=== PATIENT | female | born 1935 | race Caucasian/White ===

== ENCOUNTER 2020-10-04 18:44 | Inpatient (IN) | payer MEDICARE, BC ==
[2020-10-04] MEDS ORDERED: ONDANSETRON 4 MG/2 ML VIAL IVP STA (19:59)
[2020-10-04] MEDS ORDERED: MORPHINE SULFATE 2 MG/ML SYRINGE IVP STA (19:59)
--- NOTE | 2020-10-04 20:18 | ED ---
Lower Extremity Injury HPI - General Chief Complaint: Extremity Injury, Lower Stated Complaint: Fell 2 wks ago/infected knee Time Seen by Provider: 10/04/20 19:28 Source: patient, family Mode of arrival: wheelchair Limitations: no limitations - History of Present Illness Initial Comments: 85 year-old female patient presents to the emergency department today for evaluation of left knee pain and swelling. She had a fall causing injury to the left knee on 09/21/20. She presented to [facility] had labs, xrays of the hip and knee performed. It was determined there was no bony injury to the knee and she was discharged with Keflex for the UTI which she completed on 09/26. Saw her PCP on 09/28 had US which ruled out DVT due to increased swelling and pain to the left knee and calf. Her doctor started her on Clindamycin for cellulitis and she has been on this medication since 09/30. Over the last 3-4 days patient has developed a focal area of swelling over the superior aspect of the knee, did go to urgent care yesterday and had an unsuccessful drainage attempt for what they diagnosed as an abscess. She was discharged to continue the clindamycin. Today her physician sent her here for further evaluation and treatment. Patient states she has not slept well over the last couple of weeks due to the pain. States she is able to bear weight with her walker but it is very painful. She denies any fever or chills. Reports nausea due to the clindamycin. Denies vomiting, diarrhea, or abdominal discomfort. Has had IM cheryl placed to the left femur for previous injury. - Related Data Home Medications Medication Instructions Recorded Confirmed Acetaminophen [Tylenol Arthritis] 650 mg PO Q8H PRN 10/04/20 10/04/20 Acetaminophen/Diphenhydramine 1 tab PO HS PRN 10/04/20 10/04/20 [Tylenol PM 500-25mg] Ascorbic Acid [Vitamin C] 1,000 mg PO DAILY 10/04/20 10/04/20 Clindamycin HCl 300 mg PO TID 10/04/20 10/04/20 Cyanocobalamin (Vitamin B-12) 1,000 mcg PO DAILY 10/04/20 10/04/20 [Vitamin B-12] Furosemide [Lasix] 20 mg PO DAILY PRN 10/04/20 10/04/20 Noni 500 mg PO DAILY 10/04/20 10/04/20 HYDROcodone/APAP 5-325MG [[place] 1 tab PO DAILY PRN 10/04/20 10/04/20 5-325] Losartan Potassium 100 mg PO HS 10/04/20 10/04/20 Multivitamins, Thera [Multivitamin 1 tab PO DAILY 10/04/20 10/04/20 (formulary)] Pyridoxine HCl (Vitamin B6) 100 mg PO DAILY 10/04/20 10/04/20 [Vitamin B-6] Timolol 0.5% Ophth Soln [Timoptic 1 drop BOTH EYES DAILY 10/04/20 10/04/20 0.5% Ophth Soln] Allergies Allergy/AdvReac Type Severity Reaction Status Date / Time Penicillins Allergy Rash/Hives Verified 10/04/20 22:19 sulfamethoxazole Allergy Unknown Verified 10/04/20 22:19 [From Bactrim] trimethoprim [From Bactrim] Allergy Unknown Verified 10/04/20 22:19 Review of Systems ROS Statement: Those systems with pertinent positive or pertinent negative responses have been documented in the HPI. ROS Other: All systems not noted in ROS Statement are negative. Past Medical History Past Medical History: Hypertension Additional Past Medical History / Comment(s): cellulitis, History of Any Multi-Drug Resistant Organisms: None Reported Past Surgical History: Orthopedic Surgery Past Psychological History: No Psychological Hx Reported Smoking Status: Former smoker Past Alcohol Use History: None Reported Past Drug Use History: None Reported General Exam Limitations: no limitations General appearance: alert, in no apparent distress, other (This is a well- developed, well-nourished elderly female patient in no acute distress. Vital signs upon presentation are temperature 98.2F, pulse 82, respirations 18, blood pressure 177/83, pulse ox 98% on room air.) Respiratory exam: Present: normal lung sounds bilaterally. Absent: respiratory distress, wheezes, rales, rhonchi, stridor Cardiovascular Exam: Present: regular rate, normal rhythm, normal heart sounds. Absent: systolic murmur, diastolic murmur, rubs, gallop, clicks GI/Abdominal exam: Present: soft, normal bowel sounds. Absent: distended, tenderness, guarding, rebound, rigid Extremities exam: Present: normal capillary refill, other (Focal area of swelling to the left superior knee, there is overlying ecchymosis, and erythema. Area is fluctuant. Erythema noted over chaves. 2+ pitting edema to the left foot and ankle. Pedal and PT pulse 2+.). Absent: full ROM (limited to left knee due to increased pain with movement), pedal edema, joint swelling, calf tenderness Neurological exam: Present: alert, oriented X3, CN II-XII intact Psychiatric exam: Present: normal affect, normal mood Skin exam: Present: warm, dry, intact, normal color. Absent: rash Course Vital Signs 10/04/20 19:01 Temperature 98.2 F Pulse Rate 82 Respiratory 18 Rate Blood Pressure 177/83 O2 Sat by Pulse 98 Oximetry Medical Decision Making - Medical Decision Making 85-year-old female patient presented to the emergency department today for evaluation of left knee pain and swelling. There is concern for possible abscess. Physical examination did reveal ecchymosis, soft tissue swelling, focal area of swelling over the superior knee on the left side. Labs reviewed and did reveal normal white blood cell count. Sodium is 122, chloride 86, both are decreased from labs obtained earlier this month. She denies history of issues with hyponatremia. Urinalysis shows no signs of infection. CT of the left knee was obtained and showed evidence for a moderate-sized hematoma. She will be admitted to the hospital for hyponatremia, pain management of the left leg pain. She is agreeable this plan. Case discussed with my attending Dr. Huertas. - Lab Data Result diagrams: 10/04/20 20:02 10/04/20 20:02 Lab Results 10/04/20 10/04/20 10/04/20 Range/Units 20:02 20:02 20:02 WBC 5.6 (3.8-10.6) k/uL RBC 4.33 (3.80-5.40) m/uL Hgb 13.1 (11.4-16.0) gm/dL Hct 39.1 (34.0-46.0) % MCV 90.3 (80.0-100.0) fL MCH 30.2 (25.0-35.0) pg MCHC 33.4 (31.0-37.0) g/dL RDW 14.8 (11.5-15.5) % Plt Count 230 (150-450) k/uL MPV 6.5 Neutrophils % 66 % Lymphocytes % 23 % Monocytes % 7 % Eosinophils % 2 % Basophils % 0 % Neutrophils # 3.7 (1.3-7.7) k/uL Lymphocytes # 1.3 (1.0-4.8) k/uL Monocytes # 0.4 (0-1.0) k/uL Eosinophils # 0.1 (0-0.7) k/uL Basophils # 0.0 (0-0.2) k/uL Sodium 122 L (137-145) mmol/L Potassium 3.8 (3.5-5.1) mmol/L Chloride 86 L (98-107) mmol/L Carbon Dioxide 26 (22-30) mmol/L Anion Gap 10 mmol/L BUN 13 (7-17) mg/dL Creatinine 0.47 L (0.52-1.04) mg/dL Est GFR (CKD-EPI)AfAm >90 (>60 ml/min/1.73 sqM) Est GFR (CKD-EPI)NonAf 89 (>60 ml/min/1.73 sqM) Glucose 94 (74-99) mg/dL Plasma Lactic Acid Guilherme 1.2 (0.7-2.0) mmol/L Calcium 10.3 H (8.4-10.2) mg/dL Total Bilirubin 0.6 (0.2-1.3) mg/dL AST 42 H (14-36) U/L ALT 22 (4-34) U/L Alkaline Phosphatase 109 (38-126) U/L Total Protein 7.4 (6.3-8.2) g/dL Albumin 4.5 (3.5-5.0) g/dL Urine Color Urine Appearance (Clear) Urine pH (5.0-8.0) Ur Specific Dixon (1.001-1.035) Urine Protein (Negative) Urine Glucose (UA) (Negative) Urine Ketones (Negative) Urine Blood (Negative) Urine Nitrite (Negative) Urine Bilirubin (Negative) Urine Urobilinogen (<2.0) mg/dL Ur Leukocyte Esterase (Negative) 10/04/20 Range/Units 22:24 WBC (3.8-10.6) k/uL RBC (3.80-5.40) m/uL Hgb (11.4-16.0) gm/dL Hct (34.0-46.0) % MCV (80.0-100.0) fL MCH (25.0-35.0) pg MCHC (31.0-37.0) g/dL RDW (11.5-15.5) % Plt Count (150-450) k/uL MPV Neutrophils % % Lymphocytes % % Monocytes % % Eosinophils % % Basophils % % Neutrophils # (1.3-7.7) k/uL Lymphocytes # (1.0-4.8) k/uL Monocytes # (0-1.0) k/uL Eosinophils # (0-0.7) k/uL Basophils # (0-0.2) k/uL Sodium (137-145) mmol/L Potassium (3.5-5.1) mmol/L Chloride (98-107) mmol/L Carbon Dioxide (22-30) mmol/L Anion Gap mmol/L BUN (7-17) mg/dL Creatinine (0.52-1.04) mg/dL Est GFR (CKD-EPI)AfAm (>60 ml/min/1.73 sqM) Est GFR (CKD-EPI)NonAf (>60 ml/min/1.73 sqM) Glucose (74-99) mg/dL Plasma Lactic Acid Guilherme (0.7-2.0) mmol/L Calcium (8.4-10.2) mg/dL Total Bilirubin (0.2-1.3) mg/dL AST (14-36) U/L ALT (4-34) U/L Alkaline Phosphatase (38-126) U/L Total Protein (6.3-8.2) g/dL Albumin (3.5-5.0) g/dL Urine Color Colorless Urine Appearance Clear (Clear) Urine pH 7.0 (5.0-8.0) Ur Specific Dixon 1.005 (1.001-1.035) Urine Protein Negative (Negative) Urine Glucose (UA) Negative (Negative) Urine Ketones Negative (Negative) Urine Blood Negative (Negative) Urine Nitrite Negative (Negative) Urine Bilirubin Negative (Negative) Urine Urobilinogen <2.0 (<2.0) mg/dL Ur Leukocyte Esterase Negative (Negative) - Radiology Data Radiology results: report reviewed, image reviewed CT left knee with contrast was obtained. Report was reviewed in its entirety. Impression by Dr. Hopper shows focal small to moderate-sized anterior medial distal femoral subcutaneous hematoma. No acute fracture dislocation the left knee. Disposition Clinical Impression: Hyponatremia, Hematoma of left knee region Disposition: ADMITTED IP TO THIS [facility] Condition: Serious Decision to Admit Reason: Admit from EC Decision Date: 10/04/20 Decision Time: 23:05
[2020-10-04 20:28] LABS: Basophils % (A) 0 %; Eosinophils # (A) 0.1 k/uL (0-0.7); Eosinophils % (A) 2 %; HCT 39.1 % (34.0-46.0); HGB 13.1 gm/dL (11.4-16.0); Lymphocytes # (A) 1.3 k/uL (1.0-4.8); Lymphocytes % (A) 23 %; MCH 30.2 pg (25.0-35.0); MCHC 33.4 g/dL (31.0-37.0); MCV 90.3 fL (80.0-100.0); Mean Platelet Volume 6.5; Monocytes # (A) 0.4 k/uL (0-1.0); Monocytes % (A) 7 %; Neutrophils # (A) 3.7 k/uL (1.3-7.7); Neutrophils % (A) 66 %; Platelet Count 230 k/uL (150-450); RBC 4.33 m/uL (3.80-5.40); RDW 14.8 % (11.5-15.5); WBC 5.6 k/uL (3.8-10.6)
[2020-10-04 20:43] LABS: ALT 22 U/L (4-34); AST 42 U/L (14-36); African American GFR (CKD) >90 (>60 ml/min/1.73 sqM); Albumin 4.5 g/dL (3.5-5.0); Alkaline Phosphatase 109 U/L (38-126); Anion Gap 10 mmol/L; Blood Urea Nitrogen 13 mg/dL (7-17); Calcium 10.3 mg/dL (8.4-10.2); Carbon Dioxide 26 mmol/L (22-30); Chloride 86 mmol/L (98-107); Glucose 94 mg/dL (74-99); Non-African American GFR(CKD) 89 (>60 ml/min/1.73 sqM); Potassium 3.8 mmol/L (3.5-5.1); Sodium 122 mmol/L (137-145); Total Bilirubin 0.6 mg/dL (0.2-1.3); Total Protein 7.4 g/dL (6.3-8.2)
--- NOTE | 2020-10-04 22:00 | CT ---
EXAMINATION TYPE: CT knee LT w con DATE OF EXAM: 10/04/2020 COMPARISON: None. HISTORY: pain from fall in left knee CT DLP: 168.3 mGycm Automated exposure control for dose reduction was used. CONTRAST: Performed with IV Contrast, patient injected with 100 mL of Isovue 300. FINDINGS: There is partial visualization of radiolucent portion of femoral prosthesis in the distal femur. Ther e is no acute fracture or dislocation in the left knee. [id number] medial tibiofemoral compartm ent joint space loss. Moderate patellofemoral compartment joint space loss. No significant spurring. Lateral subluxation or tilting of the patella is identified. There is severe superficial prepatellar and infrapatellar subcutaneous edema. There is focal subcutaneous curvilinear hyperintense fluid rick ection or moderate size hematoma measuring roughly 6.3 x 1.9 x 4.2 cm distal femoral anterior medial level. Vascular structures intact without suspicious enhancement. Mild diffuse subcutaneous edema oth erwise is seen. Posterior cruciate ligament is intact. No significant suprapatellar joint effusion. IMPRESSION: Focal small to moderate size anterior medial distal femoral subcutaneous hematoma. No acu te fracture or dislocation in the left knee.
[2020-10-04 22:27] LABS: Appearance,Urine Clear (Clear); Bilirubin,Urine Negative (Negative); Blood,Urine Negative (Negative); Color,Urine Colorless; Glucose,Urine (UA) Negative (Negative); Ketones,Urine Negative (Negative); Leukocyte Esterase,Urine Negative (Negative); Nitrite,Urine Negative (Negative); Protein,Urine Negative (Negative); Specific Gravity,Urine 1.005 (1.001-1.035); Urobilinogen,Urine <2.0 mg/dL (<2.0)
[2020-10-04] MEDS ORDERED: NALOXONE 0.4 MG/ML 1 ML VIAL IV PRN (23:11)
[2020-10-04] MEDS ORDERED: ONDANSETRON 4 MG/2 ML VIAL IVP PRN (23:11)
[2020-10-05] MEDS: MORPHINE SULFATE 2 MG/ML SYRINGE IVP PRN ×2 (00:10→03:06)
[2020-10-05] MEDS: SODIUM CHLORIDE 0.9% 1,000 ML IV SCH ×2 (03:09→10:43)
[2020-10-05 04:44] LABS: African American GFR (CKD) >90 (>60 ml/min/1.73 sqM); Anion Gap 4 mmol/L; Blood Urea Nitrogen 11 mg/dL (7-17); Calcium 9.8 mg/dL (8.4-10.2); Carbon Dioxide 30 mmol/L (22-30); Chloride 89 mmol/L (98-107); Glucose 91 mg/dL (74-99); Non-African American GFR(CKD) 85 (>60 ml/min/1.73 sqM); Potassium 4.2 mmol/L (3.5-5.1); Sodium 123 mmol/L (137-145)
[2020-10-05] MEDS ORDERED: HYDROmorphone 1 MG/ML 1 ML SYRINGE IVP STA (05:05)
[2020-10-05] MEDS ORDERED: KETOROLAC 15 MG/ML 1 ML VIAL IVP STA (05:05)
--- NOTE | 2020-10-05 05:28 | XR ---
EXAMINATION TYPE: XR tibia fibula LT DATE OF EXAM: 10/05/2020 COMPARISON: NONE HISTORY: Fall. Pain. TECHNIQUE: 2 views FINDINGS: The tibia and fibula appear intact. I see no fracture nor dislocation. The knee joint and a nkle joint appear intact. Joint spaces are fairly normal. IMPRESSION: No fracture seen.
--- NOTE | 2020-10-05 07:45 | US ---
EXAMINATION TYPE: US venous doppler duplex LE LT DATE OF EXAM: 10/05/2020 7:25 AM COMPARISON: NONE CLINICAL HISTORY: dvt. left lower leg redness and swelling post fall. SIDE PERFORMED: Left TECHNIQUE: The lower extremity deep venous system is examined utilizing real time linear array sonog alex with graded compression, doppler sonography and color-flow sonography. VESSELS IMAGED: Common Femoral Vein Deep Femoral Vein Greater Saphenous Vein * Femoral Vein Popliteal Vein Proximal Calf Veins (* superficial vessels) Left Leg: Negative for DVT IMPRESSION: Grayscale, color doppler, spectral doppler imaging performed of the deep veins of the lo wer extremities. There is normal flow, compressibility, vascular waveforms.
[2020-10-05] MEDS ORDERED: ACETAMINOPHEN TAB 325 MG TAB PO PRN (09:22)
[2020-10-05] MEDS: PYRIDOXINE 50 MG TAB PO SCH (10:43)
[2020-10-05] MEDS: HYDROcodone/APAP 5-325MG 1 EACH TAB PO PRN (10:54)
[2020-10-05] MEDS: HEPARIN SODIUM,PORCINE/PF 5,000 UNIT/0.5 ML SYRINGE SQ SCH ×2 (15:14→23:29)
[2020-10-05] MEDS: HYDROmorphone 1 MG/ML 1 ML SYRINGE IVP PRN (15:15)
--- NOTE | 2020-10-05 15:58 | P.HPIM ---
History of Present Illness H&P Date: 10/05/20 Chief Complaint: Left knee swelling Patient is a 85-year-old female with a known history of hypertension and previous history of smoking was transferred from [facility] for evaluation of left knee swelling and lower extremity cellulitis. Patient states that she initially fell on her left knee on 09/21/2020 and was seen at [facility]. X-ray of the right hip and knee were done which showed no bony injury. She was also found have urinary tract infection. Patient was discharged home with antibiotic course with Keflex. She did complete her antibiotics on 09/26/2020. She was seen by primary care physician on 09/28/2020 when she had lower extremity duplex Due to increased swelling and pain in the left knee and calf. Ultrasound duplex scan was negative for DVT. She was again seen at [facility] due to left lower extremity redness and swelling. She was diagnosed with cellulitis of the lower extremity and was started on clindamycin on 09/30/2020. She usually responds well with clindamycin for her frequent lower extremity cellulitis. Over the weekend patient started developing swelling about the left knee joint and increased pain and could not sleep well due to pain. Patient was seen by orthopedic surgery and attempted to aspirate the knee twice but was not successful. Patient was sent to ER where she was found to have left suprapatellar swelling and small joint effusion at [facility]. Patient was transferred to [facility] for orthopedic surgery evaluation. Patient had IM cheryl placed to the left femur for previous injury. CT left knee showed focal small to moderate anterior medial distal femoral subcutaneous hematoma. No acute fracture or dislocation the left knee. Left lower extremity duplex scan is negative for DVT. Review of Systems Constitutional: Patient denies any fever or chills . No generalized weakness or weight loss. Abdomen: Patient denied nausea vomiting and diarrhea and abdominal pain. Cardiovascular: Patient denies any chest pain or short of breath no palpitations. Respiratory: patient denied any cough is from production. No shortness of breath Neurologic: Patient denied any numbness or tingling headache. Musculoskeletal: Patient denies any complaints of joint swelling or deformity. Left knee pain Skin: Negative Psychiatric: Negative Endocrine: No heat or cold intolerance. No recent weight gain. Genitourinary: No dysuria or hematuria. All other 14 point ROS negative except the above Past Medical History Past Medical History: Hypertension Additional Past Medical History / Comment(s): cellulitis, History of Any Multi-Drug Resistant Organisms: None Reported Past Surgical History: Orthopedic Surgery Past Psychological History: No Psychological Hx Reported Smoking Status: Former smoker Past Alcohol Use History: None Reported Past Drug Use History: None Reported - Past Family History Father Family Medical History: Osteoarthritis (OA) Additional Family Medical History / Comment(s): Heart problems Mother Family Medical History: Osteoarthritis (OA), Renal Disease Medications and Allergies Home Medications Medication Instructions Recorded Confirmed Type Acetaminophen [Tylenol Arthritis] 650 mg PO Q8H PRN 10/04/20 10/04/20 History Acetaminophen/Diphenhydramine 1 tab PO HS PRN 10/04/20 10/04/20 History [Tylenol PM 500-25mg] Ascorbic Acid [Vitamin C] 1,000 mg PO DAILY 10/04/20 10/04/20 History Clindamycin HCl 300 mg PO TID 10/04/20 10/04/20 History Cyanocobalamin (Vitamin B-12) 1,000 mcg PO DAILY 10/04/20 10/04/20 History [Vitamin B-12] Furosemide [Lasix] 20 mg PO DAILY PRN 10/04/20 10/04/20 History Noni 500 mg PO DAILY 10/04/20 10/04/20 History HYDROcodone/APAP 5-325MG [[place] 1 tab PO DAILY PRN 10/04/20 10/04/20 History 5-325] Losartan Potassium 100 mg PO HS 10/04/20 10/04/20 History Multivitamins, Thera [Multivitamin 1 tab PO DAILY 10/04/20 10/04/20 History (formulary)] Pyridoxine HCl (Vitamin B6) 100 mg PO DAILY 10/04/20 10/04/20 History [Vitamin B-6] Timolol 0.5% Ophth Soln [Timoptic 1 drop BOTH EYES DAILY 10/04/20 10/04/20 History 0.5% Ophth Soln] Allergies Allergy/AdvReac Type Severity Reaction Status Date / Time Penicillins Allergy Rash/Hives Verified 10/04/20 22:19 sulfamethoxazole Allergy Unknown Verified 10/04/20 22:19 [From Bactrim] trimethoprim [From Bactrim] Allergy Unknown Verified 10/04/20 22:19 Physical Exam Vitals: Vital Signs Temp Pulse Pulse Resp BP BP Pulse Ox 10/05/20 08:00 97.5 F L 61 17 147/55 98 10/05/20 06:00 98.6 F 81 18 152/66 97 10/05/20 04:00 67 18 120/51 97 10/05/20 03:00 97.9 F 69 18 110/55 99 10/04/20 19:01 98.2 F 82 18 177/83 98 Intake and Output 10/04/20 10/05/20 10/05/20 22:59 06:59 14:59 Other: Weight 87.997 kg PHYSICAL EXAMINATION: Patient is lying in the bed comfortably, no acute distress, awake alert and or iented.. HEENT: Normocephalic. Neck is supple. Pupils reactive. Nostrils clear. Oral cavity is moist. Neck reveals no JVD, carotid bruits, or thyromegaly. CHEST EXAMINATION: Trachea is central. Symmetrical expansion. Lung lang clear to auscultation and percussion. CARDIAC: Normal S1, S2 with no gallops. No murmurs ABDOMEN: Soft. Bowel sounds normal. No organomegaly. No abdominal bruits. Extremities: Bilateral lower extremity venous stasis changes. Left lower extremity redness and warmth present.. No clubbing or cyanosis Neurologically awake, alert, oriented x3 with well-coordinated movements. No focal deficits noted Skin: No rash or skin lesions. Psychiatric: Coperative. Nonsuicidal Musculoskeletal: Patient does have distal medial femoral swelling. No obvious left knee joint effusion. Decreased range of motion. Results CBC & Chem 7: 10/04/20 20:02 10/05/20 04:10 Labs: Abnormal Lab Results - Last 24 Hours (Table) 10/04/20 10/05/20 Range/Units 20:02 04:10 Sodium 122 L 123 L (137-145) mmol/L Chloride 86 L 89 L (98-107) mmol/L Creatinine 0.47 L (0.52-1.04) mg/dL Calcium 10.3 H (8.4-10.2) mg/dL AST 42 H (14-36) U/L Thrombosis Risk Factor Assmnt - DVT/VTE Prophylaxis DVT/VTE Prophylaxis: Pharmacologic Prophylaxis ordered Assessment and Plan Assessment: Left medial distal femoral hematoma/fluid collection. Left knee injury. Status post fall on 09/21/2020. Bony structures intact as per imaging studies. Left lower extremity cellulitis Hyponatremia likely hypovolemic Hypertension DVT Prophylaxis with heparin subcu Plan: Patient will be continued on IV hydration with normal saline and follow-up sodium level. We'll check serum osmolarity, random urine protein creatinine sodium level. Continue with IV antibiotics. ID and orthopedic surgery was consulted for possible aspiration. PTOT consulted pain management and bowel regimen. Continue to follow closely. Discussed with the patient and her son at bedside in detail and all questions were answered.. Time with Patient: Greater than 30
[2020-10-05] MEDS: LOSARTAN 50 MG TAB PO SCH (20:26)
[2020-10-06] MEDS: SODIUM CHLORIDE 0.9% 1,000 ML IV SCH ×2 (01:17→14:13)
[2020-10-06] MEDS: HYDROmorphone 1 MG/ML 1 ML SYRINGE IVP PRN ×2 (02:01→19:20)
[2020-10-06 06:24] LABS: Basophils % (A) 1 %; Eosinophils # (A) 0.1 k/uL (0-0.7); Eosinophils % (A) 2 %; HCT 32.3 % (34.0-46.0); HGB 11.2 gm/dL (11.4-16.0); Lymphocytes # (A) 1.1 k/uL (1.0-4.8); Lymphocytes % (A) 28 %; MCHC 34.7 g/dL (31.0-37.0); MCV 92.3 fL (80.0-100.0); Mean Platelet Volume 6.7; Monocytes # (A) 0.4 k/uL (0-1.0); Monocytes % (A) 9 %; Neutrophils # (A) 2.4 k/uL (1.3-7.7); Neutrophils % (A) 58 %; Platelet Count 200 k/uL (150-450); RDW 14.5 % (11.5-15.5); WBC 4.1 k/uL (3.8-10.6)
--- NOTE | 2020-10-06 07:49 | CONS ---
CONSULTATION DATE OF SERVICE: 10/05/2020 REASON FOR CONSULTATION: Left lower extremity cellulitis. HISTORY OF PRESENT ILLNESS: The patient is an 85-year-old female with past medical history significant for hypertension. The patient did have a fall on 09/21/2020 with injury to the left knee for which the patient was evaluated hospital. X-rays were negative for any bony injury or fracture. The patient noted to have positive UA and was diagnosed with UTI and has been treated with Keflex. The patient is now presenting back to the hospital with concern for increasing swelling and redness of the left lower leg that apparently had been getting worse for the last few days. The patient has been diagnosed with cellulitis and has been started with oral clindamycin. However, apparently the patient did have worsening swelling and redness to the left leg. The patient describes the pain to be more of a throbbing, intensity 5 to 6/10, no radiation. Currently does not have any open wounds to the left leg or any drainage. The patient did have swelling to the left knee and some bruising, but there is no redness. The patient does have pain to the left knee more of a dull aching 2-3/10 and no radiation. The patient did have some chills but denies high-grade fever. With these symptoms, the patient was evaluated by the ER physician. On arrival to the ER, the patient was afebrile. No fever has been recorded. Subsequently the patient did have a normal white count. Kidney function was normal. The patient did have a CT of the knee which did show evidence of distal medial femoral hematoma. Lower extremity Doppler to the left leg was negative for DVT. Patient has been admitted to the hospital. Infectious Disease was consulted for further management of antibiotic therapy. REVIEW OF SYSTEMS: Positive points have been mentioned in HPI. Rest of systems are negative. PAST MEDICAL HISTORY: Hypertension, cellulitis. PAST SURGICAL HISTORY: Orthopedic surgery. SOCIAL HISTORY: Remote history of smoking. No drinking or drug use. FAMILY HISTORY: No pertinent findings noticed. ALLERGIES: BACTRIM AND PENICILLIN, however has tolerated cephalosporins without any problem. MEDICATIONS: Currently include the patient is on Tylenol, [place], vitamin B12, heparin, Dilaudid, Cozaar, Narcan, Zofran, vitamin B6, Timoptic and Rocephin 2 grams daily. PHYSICAL EXAMINATION: VITAL SIGNS: Her blood pressure is 150/71 with a pulse of 79, temperature is 97.8, she is 96% on room air. GENERAL DESCRIPTION: The patient is an elderly female lying in bed in no distress. No tachypnea or accessory muscles of respiration use. HEENT: Examination shows no pallor or scleral icterus. Oral mucous membrane is dry. NECK: Trachea central, no thyromegaly. LUNGS: Unlabored breathing, clear to auscultation anteriorly. No wheeze or crackle. HEART: S1-S2, regular rate and rhythm. ABDOMEN: Soft, no tenderness. No guarding or rigidity. EXTREMITIES: Left knee did have swelling and did have a bruise, no redness, open wound or any drainage. Left leg did have minimal swelling, slightly warm to touch and redness. NEUROLOGICAL: Patient is awake, alert, oriented times three. Mood and affect normal. LABS: Hemoglobin 13.8, white count 5.6, BUN of 13, creatinine 0.47. CT and Doppler report as mentioned above. Urine is negative. Hernandes PCR was negative. DIAGNOSTIC IMPRESSION: 1. Patient with left lower extremity cellulitis with diffuse swelling and redness likely streptococcal disease. Clinically doubt MRSA or any gram-negative infection. 2. Patient with trauma to the left knee with a hematoma. Clinically not behaving as septic arthritis. 3. Patient who does have multiple antibiotic allergies that will limit the number of antibiotics safe to use. PLAN: 1. Discontinue Rocephin. 2. Start cefazolin 2 grams q.8 hours. 3. Monitor the erythema on left leg. 4. We will follow on clinical condition and further adjust medication if needed. Thank you for this consultation. Will follow this patient along with you. MMODL / IJN: [id number] /
[2020-10-06] MEDS: TIMOLOL 0.5% OPHTH DROPS 5 ML BTL BOTH EYES SCH (08:27)
[2020-10-06] MEDS: HEPARIN SODIUM,PORCINE/PF 5,000 UNIT/0.5 ML SYRINGE SQ SCH ×3 (08:27→23:34)
[2020-10-06] MEDS: PYRIDOXINE 50 MG TAB PO SCH (08:27)
[2020-10-06] MEDS: CYANOCOBALAMIN 500 MCG TAB PO SCH (08:27)
--- NOTE | 2020-10-06 09:06 | P.CNOR ---
History of Present Illness - HPI Consult date: 10/06/20 Consult reason: other (Left knee swelling, hematoma) History of present illness: The patient is a very pleasant 85-year-old female who lives on her own. She is normally a ambulator Clarisse independently around the house uses a walker and raised toilet seat at the house and when out of the house. She is here in [facility] in review to her left knee swelling. She had sustained a fall about 2 weeks ago and did not have any evidence of bony injury. She has small abrasion and developed some swelling around her knee. She was treated with her primary care physician appropriately however she continue to have issues with swelling and some redness. She started being treated for cellulitis but was having minimal benefit and presented to the hospital. She had evaluation for possible DVT which was negative. She underwent further testing which showed hematoma subcutaneously just above her patella. She does not have any obvious instability. She is not having any significant effusion at her knee joint. She says that her knee is feeling better and she feels better when she tries to move and stand up and walk. She does feel very tight at her knee when she tries to bend. She denies any chest pain or shortness of breath. She denies any significant prior injuries with her knee. She denies any fevers or chills. She had been seen at [facility] and they did try to do aspiration of the hematoma but they were not able to get any significant fluid from it. Review of Systems As stated per HPI. Denies any fevers chills. She is able to move her knee. She is able to weight-bear. She is not having pain in her ankle foot and toes. Past Medical History Past Medical History: Hypertension Additional Past Medical History / Comment(s): cellulitis, History of Any Multi-Drug Resistant Organisms: None Reported Past Surgical History: Orthopedic Surgery Additional Past Surgical History / Comment(s): L total hip/hardware loosened and had IM cheryl placed, bilateral feet bunionectomies, EGD, colonoscopies, bilateral cataract removals Past Anesthesia/Blood Transfusion Reactions: No Reported Reaction Past Psychological History: No Psychological Hx Reported Smoking Status: Former smoker Past Alcohol Use History: None Reported Past Drug Use History: None Reported - Past Family History Father Family Medical History: Osteoarthritis (OA) Additional Family Medical History / Comment(s): Heart problems Mother Family Medical History: Osteoarthritis (OA), Renal Disease Medications and Allergies Home Medications Medication Instructions Recorded Confirmed Type Acetaminophen [Tylenol Arthritis] 650 mg PO Q8H PRN 10/04/20 10/04/20 History Acetaminophen/Diphenhydramine 1 tab PO HS PRN 10/04/20 10/04/20 History [Tylenol PM 500-25mg] Ascorbic Acid [Vitamin C] 1,000 mg PO DAILY 10/04/20 10/04/20 History Clindamycin HCl 300 mg PO TID 10/04/20 10/04/20 History Cyanocobalamin (Vitamin B-12) 1,000 mcg PO DAILY 10/04/20 10/04/20 History [Vitamin B-12] Furosemide [Lasix] 20 mg PO DAILY PRN 10/04/20 10/04/20 History Noni 500 mg PO DAILY 10/04/20 10/04/20 History HYDROcodone/APAP 5-325MG [[place] 1 tab PO DAILY PRN 10/04/20 10/04/20 History 5-325] Losartan Potassium 100 mg PO HS 10/04/20 10/04/20 History Multivitamins, Thera [Multivitamin 1 tab PO DAILY 10/04/20 10/04/20 History (formulary)] Pyridoxine HCl (Vitamin B6) 100 mg PO DAILY 10/04/20 10/04/20 History [Vitamin B-6] Timolol 0.5% Ophth Soln [Timoptic 1 drop BOTH EYES DAILY 10/04/20 10/04/20 History 0.5% Ophth Soln] Allergies Allergy/AdvReac Type Severity Reaction Status Date / Time Penicillins Allergy Rash/Hives Verified 10/04/20 22:19 sulfamethoxazole Allergy Unknown Verified 10/04/20 22:19 [From Bactrim] trimethoprim [From Bactrim] Allergy Unknown Verified 10/04/20 22:19 Physical Examination Osteopathic Statement: *. No significant issues noted on an osteopathic structural exam other than those noted in the History and Physical/Consult. - Knee left Appearance: other (Is a small abrasion over her tibial tubercle screws be healing appropriately without erythema. There is swelling at the subcutaneous area the medial super tip patellar area of her left knee. It is approximately 10 cm wide by 6 cm longitudinally and 2-1/2 cm deep. There is an outlined area and any) Gait: limping (She has a subcutaneous collection approximately 10 x 6 x 2 cm at the medial suprapatellar area subcutaneously at the left knee. There is no evidence of purulence. The skin is intact.) right Appearance: effusion (At the knee joint there does not appear to be significant effusion itself. She still has dimpling under patella. Her knee appears stable with varus valgus stress. She has some limited flexion due to tightness anteriorly.) Results - Labs Labs: Abnormal Lab Results - Last 24 Hours (Table) 10/05/20 10/06/20 Range/Units 16:26 05:41 RBC 3.50 L (3.80-5.40) m/uL Hgb 11.2 L (11.4-16.0) gm/dL Hct 32.3 L (34.0-46.0) % Osmolality 267 L (280-301) mosm/kg H & H 10/04/20 10/06/20 Range/Units 20:02 05:41 Hgb 13.1 11.2 L (11.4-16.0) gm/dL Hct 39.1 32.3 L (34.0-46.0) % Result Diagrams: 10/06/20 05:41 10/05/20 04:10 - Diagnostic results Knee x-ray: report reviewed, image reviewed (Imaging of the knee shows no evid ence of obvious fracture. There is some evidence on computed tomography scan of subcutaneous hematoma which correlates with the physical exam) Assessment and Plan Assessment: Left knee traumatic hematoma was subcutaneous hematoma collection measuring approximately 10 x 6 x 2 cm Left knee pain Left knee cellulitis which is improving Small abrasion at the anterior tibial tubercle on the left knee without evidence of infection No evidence of fracture or instability Plan: Left knee traumatic hematoma was subcutaneous hematoma collection measuring approximately 10 x 6 x 2 cm Left knee pain Left knee cellulitis which is improving Small abrasion at the anterior tibial tubercle on the left knee without evidence of infection No evidence of fracture or instability The patient has a hematoma at the subcu space of her left knee over her distal quadriceps. The cellulitis around her knee is being treated with antibiotics and appears to be improving. The hematoma has potential to resolve on its own over time. They tried to do an aspiration of it in [facility] which yielded minimal fluid. It is likely that the collection has somewhat solidified. It can continue to improve with time and expectant management. I did discuss the possibility of surgical evacuation of hematoma with the patient. It seems to be shrinking to some degree and she is comfortable with her mobility and her ambulation so I think that it is okay to continue to treat her expectantly area there is surgical option for evacuation of the hematoma but the patient would like to hold off on this for now and I think that is appropriate. It is very un likely that any further aspiration of the area would yield any significant fluid. The cellulitis appears to be improving. There is no obvious instability or joint effusion. This does not appear to be septic knee. From an orthopedic standpoint is okay for patient to be discharged home. It is okay for her to weight-bear as tolerated. We'll have physical therapy work with her to make sure she is staying with her mobilization and ambulation. I can see her back in the office in the next 4-7 days for recheck evaluation. I discussed this with her and answered questions she is agreeable.
[2020-10-06] MEDS: HYDROcodone/APAP 5-325MG 1 EACH TAB PO PRN (10:46)
[2020-10-06 11:44] LABS: African American GFR (CKD) 100.9 (60.0-200.0); Anion Gap 7.8 mmol/L (4.00-12.00); Calcium 9.1 mg/dL (8.7-10.3); Carbon Dioxide 26.2 mmol/L (21.6-31.8); Potassium 4.2 mmol/L (3.5-5.5)
--- NOTE | 2020-10-06 13:36 | P.PN ---
Subjective Progress Note Date: 10/06/20 Patient is a 85-year-old female with a known history of hypertension and previous history of smoking was transferred from [facility] for evaluation of left knee swelling and lower extremity cellulitis. Patient states that she initially fell on her left knee on 09/21/2020 and was seen at [facility]. X-ray of the right hip and knee were done which showed no bony injury. She was also found have urinary tract infection. Patient was discharged home with antibiotic course with Keflex. She did complete her antibiotics on 09/26/2020. She was seen by primary care physician on 09/28/2020 when she had lower extremity duplex Due to increased swelling and pain in the left knee and calf. Ultrasound duplex scan was negative for DVT. She was again seen at [facility] due to left lower extremity redness and swelling. She was diagnosed with cellulitis of the lower extremity and was started on clindamycin on 09/30/2020. She usually responds well with clindamycin for her frequent lower extremity cellulitis. Over the weekend patient started developing swelling about the left knee joint and increased pain and could not sleep well due to pain. Patient was seen by or thopedic surgery and attempted to aspirate the knee twice but was not successful. Patient was sent to ER where she was found to have left suprapatellar swelling and small joint effusion at [facility]. Patient was transferred to [facility] for orthopedic surgery evaluation. Patient had IM cheryl placed to the left femur for previous injury. CT left knee showed focal small to moderate anterior medial distal femoral subcutaneous hematoma. No acute fracture or dislocation the left knee. Left lower extremity duplex scan is negative for DVT. 10/06/2020 Patient is seen and evaluated in follow-up this morning with no acute overnight issues. She continues to have some left knee discomfort and left lower extremity redness although appears improved from yesterday. Patient is maintained on IV antibiotics in the form of cefazolin and infectious disease is following. Patient continues to have a hematoma noted on the inner aspect of the left knee. PT/OT to evaluate and follow the patient. Patient was also evaluated by Dr. Abbtot and not recommending aspiration and continue with conservative management and physical therapy. Patient is maintained on IV normal saline as her sodium was low yesterday and improved and is 130 today and will continue gentle IV hydration and repeat labs and monitor closely. Blood count is 4.1 and hemoglobin is stable at 11.2. Potassium is 4.2 and current creatinine is 0.5. Review of systems: Constitutional: No reports of fatigue, fever, or chills Cardiovascular: No reports of chest pain or palpitations Respiratory: No reports of shortness of breath or cough GI: No reports of nausea, vomiting, or diarrhea : No reports of dysuria or retention Neurovascular: No reports of weakness or numbness All medications have been reviewed Objective - Vital Signs Vital signs: Vital Signs Temp 98.1 F 10/06/20 11:37 Pulse 70 10/06/20 11:37 Resp 16 10/06/20 11:37 BP 161/71 10/06/20 11:37 Pulse Ox 97 10/06/20 11:37 Intake & Output 10/05/20 10/06/20 10/06/20 18:59 06:59 18:59 Intake Total 700 Balance 700 Weight 87.997 kg Intake: Intake, IV Titration 100 Amount ceFAZolin 2 gm In Sodium 100 Chloride 0.9% 50 ml @ 100 mls/hr IVPB Q8HR ON LICENSE OF [facility] Rx# :[id number] Oral 600 Other: Voiding Method Toilet Toilet # Voids 2 3 1 # Bowel Movements 1 - Exam Patient is sitting up in the bed comfortably, no acute distress, awake alert and oriented.. HEENT: Normocephalic. Neck is supple. Pupils reactive. Nostrils clear. Oral cavity is moist. Neck reveals no JVD, carotid bruits, or thyromegaly. CHEST EXAMINATION: Trachea is central. Symmetrical expansion. Lung lang clear to auscultation and percussion. CARDIAC: Normal S1, S2 with no gallops. No murmurs ABDOMEN: Soft. Bowel sounds normal. No organomegaly. No abdominal bruits. Extremities: Bilateral lower extremity venous stasis changes. Left lower extremity redness and warmth present.. No clubbing or cyanosis, redness appears to have improved no swelling noted. Left knee inner medial aspect hematoma noted with no obvious cellulitis surrounding. Neurologically awake, alert, oriented x3 with well-coordinated movements. No focal deficits noted Skin: No rash or skin lesions. Psychiatric: Cooperative. Non-suicidal Musculoskeletal: Patient does have distal medial femoral swelling. No obvious left knee joint effusion. Decreased range of motion. - Labs CBC & Chem 7: 10/06/20 05:41 10/06/20 05:41 Labs: Abnormal Lab Results - Last 24 Hours (Table) 10/05/20 10/06/20 10/06/20 Range/Units 16:26 05:41 05:41 RBC 3.50 L (3.80-5.40) m/uL Hgb 11.2 L (11.4-16.0) gm/dL Hct 32.3 L (34.0-46.0) % Sodium 130 L (135-145) mmol/L Creatinine 0.5 L (0.6-1.5) mg/dL BUN/Creatinine Ratio 22.00 H (12.00-20.00) Ratio Osmolality 267 L (280-301) mosm/kg Assessment and Plan Assessment: Left medial distal femoral hematoma/fluid collection. Left knee injury. Status post fall on 09/21/2020. Bony structures intact as per imaging studies. Left lower extremity cellulitis Hyponatremia likely hypovolemic, improving sodium is 130 today Hypertension DVT Prophylaxis with heparin subcu Plan: Patient will be continued on IV hydration with normal saline for now as sodium level is improving and currently 130 today. Serum osmolality slightly low at 267 and random urine sodium is 18. Will repeat labs and monitor sodium levels and likely discontinue IV fluids tomorrow. Patient started on IV cefazolin and showing improvements of the left lower extremity cellulitis as the redness has improved. Patient was seen and evaluated by orthopedics recommending conservative management and outpatient follow-up. Patient continues with hematoma and will likely dissipate on its own over time. PT/OT to work with the patient. Infectious disease following. Will continue to monitor closely and await PT/OT therapy notes possible discharge in 24 hours.
[2020-10-06 14:23] LABS: Creatinine,Urine Random 34.1 mg/dL
[2020-10-06 16:28] LABS: Total Protein,Urine Random <5 mg/dL (0.0-13.5)
[2020-10-06] MEDS: LOSARTAN 50 MG TAB PO SCH (20:57)
--- NOTE | 2020-10-06 21:57 | PN ---
PROGRESS NOTE DATE OF SERVICE: 10/06/2020 REASON FOR FOLLOWUP: 1. Left lower extremity cellulitis. 2. Left knee/lower leg hematoma. INTERVAL HISTORY: The patient is afebrile. The patient continued complaining of pain to the left leg and knee area, no worsening though. No chest pain, shortness of breath or cough. No nausea, no vomiting. No abdominal pain, no diarrhea. PHYSICAL EXAMINATION: Blood pressure 161/71 with a pulse of 73, temperature 98.1. She is 97% on room air. General description is an elderly female lying in bed in no distress. Respiratory system: Unlabored breathing, clear to auscultation anteriorly. Heart S1, S2. Regular. Abdomen soft, no tenderness. Left knee did have an area of bruise and swelling. No redness. Left leg redness had improved. LABS: Hemoglobin is 11.8, white count 4.1 BUN of 11, creatinine 0.5. DIAGNOSTIC IMPRESSION AND PLAN: Patient with fall with left knee hematoma. Clinically behaving as septic arthritis ( ) left lower extremity cellulitis covered with cefazolin 2 g q.8h. Continue and monitor clinical course closely. MMODL / IJN: [id number] /
[2020-10-07] MEDS: SODIUM CHLORIDE 0.9% 1,000 ML IV SCH (04:04)
[2020-10-07] MEDS: HYDROmorphone 1 MG/ML 1 ML SYRINGE IVP PRN (04:33)
[2020-10-07] MEDS: CYANOCOBALAMIN 500 MCG TAB PO SCH (08:05)
[2020-10-07] MEDS: PYRIDOXINE 50 MG TAB PO SCH (08:05)
[2020-10-07] MEDS: HEPARIN SODIUM,PORCINE/PF 5,000 UNIT/0.5 ML SYRINGE SQ SCH (08:05)
[2020-10-07] MEDS: TIMOLOL 0.5% OPHTH DROPS 5 ML BTL BOTH EYES SCH (08:05)
[2020-10-07 10:32] LABS: African American GFR (CKD) >90 (>60 ml/min/1.73 sqM); Anion Gap 6 mmol/L; Blood Urea Nitrogen 12 mg/dL (7-17); Calcium 9.7 mg/dL (8.4-10.2); Carbon Dioxide 26 mmol/L (22-30); Chloride 99 mmol/L (98-107); Glucose 109 mg/dL (74-99); Non-African American GFR(CKD) 85 (>60 ml/min/1.73 sqM); Potassium 4.2 mmol/L (3.5-5.1); Sodium 131 mmol/L (137-145)
[2020-10-07 12:20] VITALS: BP 158/76; PULSE 77; RESP 12; TEMP 98.4
--- NOTE | 2020-10-07 13:51 | P.DS ---
Providers Date of admission: 10/04/20 22:51 Expected date of discharge: 10/07/20 Attending physician: Millie Connell Consults: 10/05/20 10:46 Consult Physician Routine Consulting Provider: Taty Royal Consult Reason/Comments: left supra-patella swelling, pain, infection Do you want consulting provider notified?: Yes 10/05/20 13:01 Consult Physician Urgent Consulting Provider: Mindi Abbott Consult Reason/Comments: left knee suprapatellar swelling/ possible drain? Do you want consulting provider notified?: Yes Primary care physician: Bar Chavis MD Hospital Course: Final diagnosis Left medial distal femoral hematoma/fluid collection. Left knee injury. Status post fall on 09/21/2020. Bony structures intact as per imaging studies. Left lower extremity cellulitis Hyponatremia likely hypovolemic, improving Hypertension DVT Prophylaxis Discharge disposition Patient is being discharged in a stable condition with guarded prognosis to [facility] for continued rehab. Patient will follow-up with Dr. Bar Chavis upon discharge. Patient also to follow-up with orthopedics Dr. Abbott in the outpatient setting. Patient will continue on oral antibiotics in the form of Keflex 500 mg every 6 hours for the next 7 days and then may discontinue. Prescription also provided for repeat labs to monitor sodium level. Total time taken is greater than 35 minutes. Hospital course Patient is a 85-year-old female with a known history of hypertension and previous history of smoking was transferred from [facility] for evaluation of left knee swelling and lower extremity cellulitis. Patient states that she initially fell on her left knee on 09/21/2020 and was seen at [facility]. X-ray of the right hip and knee were done which showed no bony injury. She was also found have urinary tract infection. Patient was discharged home with antibiotic course with Keflex. She did complete her antibiotics on 09/26/2020. She was seen by primary care physician on 09/28/2020 when she had lower extremity duplex Due to increased swelling and pain in the left knee and calf. Ultrasound duplex scan was negative for DVT. She was again seen at [facility] due to left lower extremity redness and swelling. She was diagnosed with cellulitis of the lower extremity and was started on clindamycin on 09/30/2020. She usually responds well with clindamycin for her frequent lower extremity cellulitis. Over the weekend patient started developing swelling about the left knee joint and increased pain and could not sleep well due to pain. Patient was seen by orthopedic surgery and attempted to aspirate the knee twice but was not successful. Patient was sent to ER where she was found to have left suprapatellar swelling and small joint effusion at [facility]. Patient was transferred to [facility] for orthopedic surgery evaluation. Patient had IM cheryl placed to the left femur for previous injury. CT left knee showed focal small to moderate anterior medial distal femoral subcutaneous hematoma. No acute fracture or dislocation the left knee. Left lower extremity duplex scan is negative for DVT. 10/06/2020 Patient is seen and evaluated in follow-up this morning with no acute overnight issues. She continues to have some left knee discomfort and left lower extremity redness although appears improved from yesterday. Patient is maintained on IV antibiotics in the form of cefazolin and infectious disease is following. Patient continues to have a hematoma noted on the inner aspect of the left knee. PT/OT to evaluate and follow the patient. Patient was also evaluated by Dr. Abbott and not recommending aspiration and continue with conservative management and physical therapy. Patient is maintained on IV normal saline as her sodium was low yesterday and improved and is 130 today and will continue gentle IV hydration and repeat labs and monitor closely. Blood count is 4.1 and hemoglobin is stable at 11.2. Potassium is 4.2 and current creatinine is 0.5. 10/07/2020 Patient is seen in follow-up this morning sodium improved at 131 and recommend repeat labs to monitor electrolytes closely in the outpatient setting. Patient maintained on IV cefazolin and we'll transition to oral Keflex 500 mg every 6 hours for the next 7 days to complete the course. He should also instructed to follow-up outpatient with orthopedics in 1-2 weeks. Patient continued to be weak recommending subacute rehab as evaluated by PT/OT and will be going to [facility] [place] today. Family at the bedside and agreeable. Currently no reports of chest pain, shortness of breath, or palpitations. Patient is afebrile. No reports of nausea or vomiting and patient is tolerating diet. On exam vital signs are stable. Cardio S1, S2 are muffled. Respiratory shows diminished breath sounds at the bases with no wheezing or rhonchi noted. Abdomen is soft and nontender. Nervous system shows mild diffuse weakness. Please refer to medication reconciliation sheet for a list of medications. Patient Condition at Discharge: Stable Plan - Discharge Summary Discharge Rx Participant: No New Discharge Prescriptions: New Cephalexin [Keflex] 500 mg PO Q6HR 7 Days #28 cap Continue Pyridoxine HCl (Vitamin B6) [Vitamin B-6] 100 mg PO DAILY Acetaminophen [Tylenol Arthritis] 650 mg PO Q8H PRN PRN Reason: Pain Timolol 0.5% Ophth Soln [Timoptic 0.5% Ophth Soln] 1 drop BOTH EYES DAILY Losartan Potassium 100 mg PO HS HYDROcodone/APAP 5-325MG [[place] 5-325] 1 tab PO DAILY PRN #6 tab PRN Reason: Pain Cyanocobalamin (Vitamin B-12) [Vitamin B-12] 1,000 mcg PO DAILY Multivitamins, Thera [Multivitamin (formulary)] 1 tab PO DAILY Ascorbic Acid [Vitamin C] 1,000 mg PO DAILY Acetaminophen/Diphenhydramine [Tylenol PM 500-25mg] 1 tab PO HS PRN PRN Reason: PAIN/SLEEP Noni 500 mg PO DAILY Discontinued Furosemide [Lasix] 20 mg PO DAILY PRN PRN Reason: Edema Clindamycin HCl 300 mg PO TID Discharge Medication List Acetaminophen [Tylenol Arthritis] 650 mg PO Q8H PRN 10/04/20 [History] Acetaminophen/Diphenhydramine [Tylenol PM 500-25mg] 1 tab PO HS PRN 10/04/20 [History] Ascorbic Acid [Vitamin C] 1,000 mg PO DAILY 10/04/20 [History] Cyanocobalamin (Vitamin B-12) [Vitamin B-12] 1,000 mcg PO DAILY 10/04/20 [History] Noni 500 mg PO DAILY 10/04/20 [History] Losartan Potassium 100 mg PO HS 10/04/20 [History] Multivitamins, Thera [Multivitamin (formulary)] 1 tab PO DAILY 10/04/20 [History] Pyridoxine HCl (Vitamin B6) [Vitamin B-6] 100 mg PO DAILY 10/04/20 [History] Timolol 0.5% Ophth Soln [Timoptic 0.5% Ophth Soln] 1 drop BOTH EYES DAILY 06/15/21 [History] Cephalexin [Keflex] 500 mg PO Q6HR 7 Days #28 cap 10/07/20 [Rx] HYDROcodone/APAP 5-325MG [[place] 5-325] 1 tab PO DAILY PRN #6 tab 10/07/20 [Rx] Follow up Appointment(s)/Referral(s): Mindi Abbott DO [Doctor of Osteopathic Medicine] - 1 Week Bar Chavis MD [Primary Care Provider] - 1-2 days Ambulatory/Diagnostic Orders: Basic Metabolic Panel [LAB.AMB] Time Frame: 2 Days, Location: None Selected Activity/Diet/Wound Care/Special Instructions: May ambulate to tolerance. Weight-bear as tolerated bilateral lower extremities. Should do gentle range of motion exercises on her own at her knee ankle and foot Patient is going to [facility]CF Activity as tolerated Continue to elevate left lower extremity while at rest Continue with antibiotics for 7 days and then may discontinue Follow-up orthopedics outpatient follow up with primary care provider upon discharge Continue heart healthy diet Continue to hold Lasix for now Repeat labs of BMP in 2-3 days to monitor sodium level Discharge Disposition: TRANSFER TO SNF/ECF
--- NOTE | 2020-10-07 17:11 | PN ---
PROGRESS NOTE DATE OF SERVICE: 10/07/2020 REASON FOR FOLLOWUP: Left lower extremity cellulitis, left lower leg hematoma. INTERVAL HISTORY: Patient is afebrile. The patient is breathing comfortably. Overall pain and discomfort to the left leg has decreased. The patient denies having any chest pain, shortness of breath or cough. No abdominal pain or diarrhea. PHYSICAL EXAMINATION: Blood pressure 158/76, pulse of 77, temperature 98.4. She is 96% on room air. General description is an elderly female lying in bed in no distress. Respiratory system: Unlabored breathing, clear to auscultation anteriorly. Heart S1, S2. Regular rate and rhythm. Abdomen is soft, no tenderness. Left knee area of swelling and hematoma slightly decreased. No redness was noticed. Left leg redness has decreased. LABS: Creatinine 0.55. No CBC was done today. DIAGNOSTIC IMPRESSION AND PLAN: 1. Patient with acute left lower extremity cellulitis in this patient who has shown overall improvement with cefazolin. She will finish therapy with oral Keflex for a week. Discussed with the nurse practitioner for admitting team. 2. Patient with left knee area hematoma. No evidence of any abscess clinically. To be monitored closely. Family at the bedside. Questions answered. MMODL / IJN: [id number] /
== END 2020-10-07 14:58 | DRG 605 ==
LOC: EC 18:44 → 5NMEDONC 22:51
PROVIDERS: ADMIT Hospitalist; ATTEND Hospitalist
DX: S80.02XA Contusion of left knee, initial encounter (principal); L03.116 Cellulitis of left lower limb; M00.9 Pyogenic arthritis, unspecified; E87.1 Hypo-osmolality and hyponatremia; E86.1 Hypovolemia; I10 Essential (primary) hypertension; Z20.822 Contact with and (suspected) exposure to COVID-19; S80.12XA Contusion of left lower leg, initial encounter; X58.XXXA Exposure to other specified factors, initial encounter; Z87.891 Personal history of nicotine dependence; Z88.1 Allergy status to other antibiotic agents
CPT/HCPCS: 36415; 80048; 80053; 81003; 82570; 83605; 83930; 84156; 84300; 85025; 87635; 96374; 96375; 99285

== ENCOUNTER → 2022-01-12 | Outpatient (CLI) | payer MEDICARE, BC ==
--- NOTE | 2022-01-12 12:11 | US ---
EXAMINATION TYPE: US venous doppler duplex LE DATE OF EXAM: 01/12/2022 12:04 PM COMPARISON: Left leg only 10/05/2020. CLINICAL HISTORY: I82.493 DVT. Leg pain, no known prior DVT SIDE PERFORMED: Bilateral TECHNIQUE: The lower extremity deep venous system is examined utilizing real time linear array sonog alex with graded compression, doppler sonography and color-flow sonography. VESSELS IMAGED: Common Femoral Vein Deep Femoral Vein Greater Saphenous Vein * Femoral Vein Popliteal Vein Small Saphenous Vein * Proximal Calf Veins (* superficial vessels) Grayscale, color doppler, spectral doppler imaging performed of the deep veins of the lower extremiti es. There is normal flow, compressibility, vascular waveforms. Right Leg: Negative for DVT, pt unable to tolerate compression distal femoral vein and pressure of p robe to visualize proximal calf veins Left Leg: Negative for DVT, pt unable to tolerate compression distal femoral vein IMPRESSION: No ultrasound evidence of deep venous thrombosis of the bilateral lower extremities. Patient could no t tolerate compression of the distal femoral veins bilaterally.
== END | disposition home or self-care (01) ==
LOC: RADUSWWP 11:41
PROVIDERS: ATTEND Podiatrist Foot & Ankle Surgery
DX: I82.493 Acute embolism and thrombosis of other specified deep vein of lower extremity, bilateral (principal)
CPT/HCPCS: 93970

== ENCOUNTER → 2022-11-26 | Outpatient (CLI) | payer MEDICARE, BC ==
[2022-11-26 13:33] LABS: INR 0.9 (<1.2); Partial Thromboplastin Time 22.4 sec (22.0-30.0); Prothrombin Time 9.7 sec (9.0-12.0)
[2022-11-26 15:35] LABS: HCT 35.4 % (37.2-46.3); MCH 29.6 pg (27.0-32.0); MCHC 31.1 d/dL (32.0-37.0); MCV 95.2 FL (80.0-97.0); Mean Platelet Volume 9.9 FL (9.5-12.2); NRBC Per 100 WBC 0 X 10*3/uL (0.00-0.01); Platelet Count 263 X 10*3/uL (140-440); RBC 3.72 X 10*6/uL (4.10-5.20); RDW 12.6 % (11.5-14.5); WBC 6.04 X 10*3/uL (4.50-10.00)
[2022-11-26 16:36] LABS: Appearance,Urine Clear (Clear); Bilirubin,Urine Negative (Negative); Blood,Urine Negative (Negative); Color,Urine Yellow (Yellow); Ketones,Urine Negative (Negative); Nitrite,Urine Negative (Negative); Specific Gravity,Urine 1.009 (1.001-1.030); Urobilinogen,Urine 0.2 E.U./DL
[2022-11-26 16:44] LABS: Bacteria,Urine None Seen (None Seen)
[2022-11-26 20:25] LABS: ALT 18 U/L (8-44); AST 23 U/L (13-35); Albumin 4.4 d/dL (3.8-4.9); Albumin/Globulin Ratio 1.76 Ratio (1.60-3.17); Alkaline Phosphatase 109 U/L (41-126); BUN/Creat Ratio 30.17 Ratio (12.00-20.00); Blood Urea Nitrogen 18.1 mg/dL (9.0-27.0); Carbon Dioxide 26.2 mmol/L (21.6-31.8); Chloride 99 mmol/L (96-109); Globulin 2.5 d/dL (1.6-3.3); Glucose 97 mg/dL (70-110); Potassium 5.4 mmol/L (3.5-5.5); Sodium 135 mmol/L (135-145); Total Bilirubin <0.2 mg/dL (0.3-1.2); Total Protein 6.9 d/dL (6.2-8.2)
== END | disposition home or self-care (01) ==
LOC: LABWHC1 11:36
PROVIDERS: ATTEND Orthopaedic Surgery
DX: Z01.812 Encounter for preprocedural laboratory examination (principal); M16.11 Unilateral primary osteoarthritis, right hip; I49.8 Other specified cardiac arrhythmias; R94.31 Abnormal electrocardiogram [ECG] [EKG]
CPT/HCPCS: 36415; 80053; 81001; 85027; 85610; 85730; 87070; 93005

== ENCOUNTER 2022-12-04 05:39 | Inpatient (IN) | payer MEDICARE, BC ==
[~2022-12-04 05:39] MED LIST: ACETAMINOPHEN TAB 500 MG TAB PO PRN; GABAPENTIN 300 MG CAP PO PRN; MELOXICAM 7.5 MG TAB PO PRN; TRANEXAMIC 1,000 MG/100ML-NACL 1,000 MG in SALINE 1 100ML.BAG IVPB PRN
[2022-12-04] MEDS ORDERED: LACTATED RINGERS 1,000 ML IV ONE ×2 (06:20→08:20)
[2022-12-04] MEDS ORDERED: ONDANSETRON 4 MG/2 ML VIAL ONE (06:27)
[2022-12-04] MEDS ORDERED: MIDAZOLAM 2 MG/2 ML VIAL IVP ONE (06:47)
[2022-12-04] MEDS ORDERED: ONDANSETRON 4 MG/2 ML VIAL IVP ONE ×2 (06:53→07:13)
[2022-12-04] MEDS ORDERED: DEXAMETHASONE SOD PHOSPHATE 4 MG/ML 1 ML VIAL IVP ONE (06:53)
[2022-12-04] MEDS ORDERED: ROPIVACAINE 5 MG/ML 30 ML VIAL ONE (06:58)
[2022-12-04] MEDS ORDERED: ePHEDrine 50 MG/ML 1 ML VIAL ONE (06:58)
[2022-12-04] MEDS ORDERED: TRANEXAMIC 1,000 MG/100ML-NACL PREMIX BAG ONE (06:58)
[2022-12-04] MEDS ORDERED: MIDAZOLAM 2 MG/2 ML VIAL ONE (06:58)
[2022-12-04] MEDS ORDERED: ceFAZolin 1,000 MG in SODIUM CHLORIDE 0.9% 1,000 ML IRRIGATION ONE (07:00)
[2022-12-04] MEDS ORDERED: DEXAMETHASONE SOD PHOSPHATE 4 MG/ML 1 ML VIAL IV ONE (07:13)
[2022-12-04] MEDS ORDERED: MIDAZOLAM 2 MG/2 ML VIAL IV PRN (07:13)
[2022-12-04] MEDS ORDERED: LIDOCAINE 1% (10MG/ML) FOR IV START INTRADERMA PRN (07:13)
[2022-12-04] MEDS ORDERED: ROPIVACAINE 5 MG/ML 30 ML VIAL MISCELLANE ONE ×2 (07:24→08:20)
--- NOTE | 2022-12-04 08:16 | P.OP ---
Date of Procedure: 12/04/22 Preoperative Diagnosis: Severe Osteoarthritis right hip Postoperative Diagnosis: Severe osteoarthritis right hip Procedure(s) Performed: Right total hip arthroplasty with a direct anterior approach Implants: [employer] Polarstem standard size 4 with a collar [employer] R3, multi hole hemispherical acetabular shell, 52 mm [employer] Reflection 6.5 mm cancellus screw, 20 mm, 25 mm [employer] R3, XLPE 20 acetabular liner [employer]hew Oxinium femoral head 36 m, +4 Montage bone graft All components were press-fit. The articulation is Oxinium on polyethylene. Anesthesia: spinal Surgeon: Wallace Dunn [employer] Sales Engineer #1: Diana Carrera Estimated Blood Loss (ml): 300 Condition: stable Disposition: PACU Indications for Procedure: After failure of conservative treatment we discussed the surgical and nonsurgical treatment options at length. Patient wishes to proceed with a total hip arthroplasty with a direct anterior approach. Complications specific to this procedure were discussed at length, including but not limited to infection, leg length discrepancy, dislocation, nerve injury, and fracture. Covid-19 was also discussed at length with the patient, and they are aware of the current policies and procedures. The patient was given the option of delaying surgery, but they elect to proceed knowing these risks. Patient is aware of all these complications and informed consent was obtained Operative Findings: The operative findings are consistent with severe osteoarthritis of the right hip Description of Procedure: The patient was seen and evaluated in the preoperative area and the consent was reviewed. The operative site was marked with a skin marker. The patient verified the procedure and operative site. A ELICIA block was placed by anesthesia in the preoperative area. The patient was then brought to the operating room and given preoperative antibiotics intravenously. 1 g of Tranexamic acid was also given intravenously. A spinal anesthetic was administered by the anesthesia department. The patient was then placed on the [place] table with the bony prominences well-padded. The hip area was then prepped with a ChloraPrep solution and draped in the usual sterile fashion. A universal timeout was then performed, which confirmed the patient's name, surgical site, ALLERGIES, and procedure being performed on the consent. Next the incision site was located at 1 cm distal and 4 cm lateral to the anterior superior iliac spine. The skin and subcutaneous tissues were sharply incised. Incision was carefully dissected down to the fascia overlying the tensor fascia lorna muscle. This fascia was then incised in line with the muscle fibers. Care was taken to stay laterally in order to avoid injuring the lateral femoral cutaneous nerve. Next, using blunt finger dissection, the tensor fascia lorna muscle was dissected off its investing fascia. The muscle was then carefully retracted laterally with a cobra retractor over the lateral neck of the femur. Next, the circumflex vessels were identified and cauterized using the Aquamantis device. The anterior hip capsule was then exposed. The capsule was then opened and an inverted T fashion. The retractors were then placed intracapsularly. The retractors were maintained intracapsular throughout the procedure. The proximal femur was then visualized. Fluoroscopic x-rays were then taken in order to evaluate the preoperative leg lengths. A small amount of traction was placed on the leg. The femoral neck was then osteotomized at the appropriate level above the lesser trochanter. A small wedge of bone was then removed from the remaining femoral head. Next, using a corkscrew the femoral head was removed from the acetabulum. On gross visual inspection, the femoral head had complete loss of articular cartilage and multiple periarticular osteophytes. The femoral head was then measured. Attention was then turned to the acetabulum. The acetabulum was exposed and any remaining labrum was excised. Sequential reaming of the acetabulum was performed using fluoroscopic guidance until there was a good bed of bleeding cancellus bone. When the appropriate size was reached, a trial was then placed. The position and fit of the trial was checked with fluoroscopy. The trial was then removed. Due to the patient's poor bone quality, montage bone graft was used to supplement the acetabular fixation. Then, using fluoroscopic guidance, the final implant was impacted at 20 of anteversion and 40 of abduction, and fully seated in the acetabulum. 2 screws were then placed in the acetabulum. Again fluoroscopy was used to check position of the screws. Next, the liner was then impacted, with a 20 elevated liner located in the anterior superior quadrant. Component locking was confirmed. Attention was then directed to the femur. With the aid of the [place] table, the femur was externally rotated to approximately 130, extended, and adducted under the opposite leg. A side hook was then placed under the proximal femur, and the side hook elevator was used to elevate the proximal femur while releasing the capsule. Retractors were then placed. A capsular release was performed, as well as a release of the conjoined tendon, which afforded excellent visualization of the proximal femur. Next, a box osteotome was used to lateralize the proximal femur. A forging machine hand was then used to locate the femoral canal. Sequential broaching was then performed with appropriate size which afforded excellent fixation in the proximal femur. A trial was then placed with appropriate head and neck, and the hip was gently reduced with the aid of the [place] table. Fluoroscopy was then used to check position of the components, as well as to evaluate the leg lengths and offset. The leg lengths and offset were measured as closely as possible to ensure stability of the hip. The hip was then gently dislocated and the trials were then removed. Final implants were then impacted and the hip was again reduced. Final fluoroscopic x-rays confirmed that the components were in anatomic position. The leg lengths and offset were measured and were found to coincide with the trial measurements. The hip was also taken through range of motion, and found to be stable. The hip was then copiously irrigated with antibiotic solution with pulsatile lavage. The hip was then irrigated with Irrisept solution. The soft tissues were then injected with a ropivacaine solution. A second dose of 1 g of Tranexamic acid was also given intravenously. The fascia was then closed with 2-0 strata fix suture. The subcutaneous tissue was closed with 3-0 Vicryl. The subcuticular tissue was closed with 3-0 strata fix suture. The skin was then closed with Exofin skin glue. After the glue and dried, and Optifoam silver impregnated dressing was applied. The patient was then transferred to the recovery room in stable condition. The fiscal assistant TORI Cai was required due to the complexity of surgery, and the need for skilled surgical coordinator for positioning, draping, exposure, retraction, and closure of the wound.
[2022-12-04] MEDS ORDERED: MAGNESIUM HYDROXIDE 2,400 MG/30 ML CUP PO PRN (08:41)
[2022-12-04] MEDS ORDERED: HYDROmorphone 0.5 MG/0.5 ML SYRINGE IVP PRN ×2 (08:41)
[2022-12-04] MEDS ORDERED: NALOXONE 0.4 MG/ML 1 ML VIAL IV PRN (08:41)
[2022-12-04] MEDS ORDERED: ONDANSETRON 4 MG/2 ML VIAL IVP PRN (08:41)
[2022-12-04] MEDS ORDERED: traMADol 50 MG TAB PO PRN (08:44)
--- NOTE | 2022-12-04 08:46 | P.ANPRN ---
Procedure Note - Anesthesia - Nerve Block Performed Right Jimmy Time Out Performed: Yes (06:46) Date of Procedure: 12/04/22 Procedure Start Time: Procedure Stop Time: :51 Location of Patient: PreOp Indication: Acute Post-Operative Pain, Requested by Surgeon (Dr Wallace Dunn) Sedation Type: Sedate with meaningful contact maintained Preparation: Sterile Prep Position: Supine Catheter: None Needle Types: Pajunk Needle Gauge: 21 Ultrasound used to visualize needle placement: Yes Ultrasound used to observe medication spread: Yes Injectate: 0.5% Ropivacaine (see comment for volume) (c) Blood Aspirated: No Pain Paresthesia on Injection Noted: No Resistance on Injection: Normal Image Stored and Saved: Yes Events: Uneventful and Well Tolerated
--- NOTE | 2022-12-04 08:48 | XR ---
Intraoperative/procedural fluoroscopic services were provided for right total hip arthroplasty. Total fluoroscopy time is 1 minute with a total of 3 submitted images to PACS. Total DAP 3.[address] ease see the operative note for further details.
--- NOTE | 2022-12-04 09:07 | XR ---
EXAMINATION TYPE: XR Hip Limited RT DATE OF EXAM: 12/04/2022 9:03 AM INDICATION: Patient age:Female; 87 years old; Reason for study: Status post hip surgery, assess surgical alignment; PHH. COMPARISON: Right hip fluoroscopic images of the same date TECHNIQUE: The right hip was examined in frontal projection. FINDINGS: Post surgical changes from total right hip arthroplasty. Hardware appears intact and approp riately aligned. There is associated soft tissue gas and edema. No acute fracture or dislocation. IMPRESSION: Postsurgical changes from right total hip arthroplasty. Hardware appears intact with appropriate alig nment.
[2022-12-04] MEDS: HYDROmorphone 0.5 MG/0.5 ML SYRINGE IVP PRN ×2 (12:03→12:13)
[2022-12-04] MEDS: LACTATED RINGERS 1,000 ML IV SCH (13:01)
[2022-12-04] MEDS: ASPIRIN 325 MG TAB PO SCH ×2 (13:02→22:33)
[2022-12-04] MEDS: SODIUM CHLORIDE 0.9% 1,000 ML IV SCH ×2 (13:02→23:12)
[2022-12-04] MEDS: traMADol 50 MG TAB PO PRN (14:30)
[2022-12-04] MEDS ORDERED: SUMAtriptan succinate 50 MG TAB PO PRN (17:07)
[2022-12-04] MEDS: SENNOSIDES-DOCUSATE SODIUM 1 EACH TAB PO SCH (22:33)
[2022-12-04] MEDS: LOSARTAN 50 MG TAB PO SCH (22:33)
--- NOTE | 2022-12-05 02:28 | P.CONS ---
History of Present Illness - Reason for Consult Consult date: 12/04/22 Medical management - Chief Complaint Right total hip arthroplasty - History of Present Illness Patient is a 87-year-old female with a known history of hypertension, osteoarthritis and history of left total hip arthroplasty and prior history of smoking was admitted to the hospital for elective right total hip arthroplasty. Patient is status post right hip arthroplasty with direct anterior approach. Postoperative day 0. Pain is controlled at this time. Patient underwent nerve block. Otherwise denies any complaints of chest pain or shortness of breath. No nausea vomiting abdominal pain. No headache or dizziness or lightheadedness. Postoperatively blood pressure is elevated with SBP in 150s. Status post right total hip arthroplasty postoperative day 0 Benign essential hypertension. Fairly controlled. Prior history of smoking Osteoarthritis Prior history of left total hip arthroplasty/ History of migraine headaches GI and DVT prophylaxis Plan: Patient will be continued on pain management, bowel regimen and encourage incentive spirometry. Patient underwent nerve block. Current with home blood pressure medications including Norvasc and losartan and Lasix. Patient is currently on aspirin 325 mg p.o. twice daily. Follow-up CBC and BMP tomorrow. Further recommendations based on the clinical course. Thank you for your consult. Past Medical History Past Medical History: Hypertension Additional Past Medical History / Comment(s): LEG SWELLING. LEG SWELLING History of Any Multi-Drug Resistant Organisms: None Reported Past Surgical History: Hysterectomy, Orthopedic Surgery Additional Past Surgical History / Comment(s): L total hip/hardware loosened and had IM cheryl placed. Bilateral feet bunionectomies,. EGD, colonoscopies, bilateral cataract removals Past Anesthesia/Blood Transfusion Reactions: No Reported Reaction Past Psychological History: No Psychological Hx Reported Additional Psychological History / Comment(s): Pt resides alone. She uses a ro llator walker. Pt normally drives but lately d/t knee injury, her son has been driving her. Smoking Status: Former smoker Past Alcohol Use History: None Reported Past Drug Use History: None Reported - Past Family History Father Family Medical History: Osteoarthritis (OA) Additional Family Medical History / Comment(s): Heart problems Mother Family Medical History: Osteoarthritis (OA), Renal Disease Medications and Allergies Home Medications Medication Instructions Recorded Confirmed Type Losartan Potassium 100 mg PO HS 10/04/20 11/27/22 History Timolol 0.5% Ophth Soln [Timoptic 1 drop BOTH EYES QAM 10/04/20 11/27/22 History 0.5% Ophth Soln] Furosemide [Lasix] 20 mg PO QAM PRN 06/22/22 11/27/22 History Acetaminophen/Diphenhydramine 1 tab PO HS 11/27/22 11/27/22 History [Tylenol PM 500-25mg] Aspirin [Adult Low Dose Aspirin EC] 81 mg PO DAILY 11/27/22 11/27/22 History SUMAtriptan succinate [Imitrex] 50 mg PO DAILY PRN 11/27/22 11/27/22 History amLODIPine [Norvasc] 5 mg PO QAM 11/27/22 11/27/22 History Aspirin 325 mg PO BID #60 tab 12/04/22 Rx Sennosides [Senokot] 2 tab PO DAILY PRN #60 tablet 12/04/22 Rx traMADol HCl [Ultram] 1 - 2 tab PO Q6H PRN #32 tab 12/04/22 Rx Allergies Allergy/AdvReac Type Severity Reaction Status Date / Time Penicillins Allergy Rash/Hives Verified 12/04/22 06:08 sulfamethoxazole Allergy Unknown Verified 12/04/22 06:08 [From Bactrim] trimethoprim [From Bactrim] Allergy Unknown Verified 12/04/22 06:08 Physical Exam Vitals: Vital Signs Temp Pulse Pulse Resp BP BP Pulse Ox 12/04/22 13:30 97.5 F L 59 L 19 129/80 100 12/04/22 12:30 55 L 16 124/62 97 12/04/22 12:03 61 16 145/73 97 12/04/22 11:46 52 L 16 126/83 97 12/04/22 11:15 52 L 16 121/60 97 12/04/22 10:59 52 L 16 121/64 97 12/04/22 10:31 52 L 16 115/53 97 12/04/22 10:14 53 L 16 121/56 97 12/04/22 10:00 53 L 16 104/53 97 12/04/22 09:45 54 L 16 109/52 97 12/04/22 09:28 55 L 16 105/52 97 12/04/22 09:14 54 L 16 106/56 97 12/04/22 09:00 57 L 14 110/48 97 12/04/22 08:44 57 L 14 102/48 97 12/04/22 08:32 64 14 100/47 97 12/04/22 06:53 65 20 129/63 100 12/04/22 06:00 96.9 F L 65 20 147/69 100 Intake and Output 12/03/22 12/04/22 12/04/22 22:59 06:59 14:59 Intake Total 400 1051 Output Total 450 Balance 400 601 Intake: IV 400 1051 Output: Urine 150 Estimated Blood Loss 300 Other: Weight 90.9 kg Results CBC & Chem 7: 12/04/22 06:40
[2022-12-05] MEDS: traMADol 50 MG TAB PO PRN ×3 (04:24→17:17)
[2022-12-05] MEDS: LACTATED RINGERS 1,000 ML IV SCH (05:20)
[2022-12-05] MEDS: HYDROmorphone 0.5 MG/0.5 ML SYRINGE IVP PRN ×3 (08:00→19:45)
[2022-12-05] MEDS: TIMOLOL 0.5% OPHTH DROPS 5 ML BTL BOTH EYES SCH (08:01)
[2022-12-05] MEDS: ASPIRIN 325 MG TAB PO SCH ×2 (08:01→19:45)
[2022-12-05] MEDS: amLODIPine 5 MG TAB PO SCH (08:01)
--- NOTE | 2022-12-05 09:22 | P.PN ---
Subjective Progress Note Date: 12/05/22 Principal diagnosis: Primary osteoarthritis right hip. Status post total right hip arthroplasty. This is an 87-year-old female who is postop day #1 status post total right hip arthroplasty. She is stable from an orthopedic standpoint. She has no new complaints or concerns today. Vital signs are stable. She has no complaint of nausea, vomiting, shortness of breath or dyspnea. Objective - Vital Signs Vital signs: Vital Signs Temp 97.4 F L 12/05/22 07:19 Pulse 88 12/05/22 07:19 Resp 16 12/05/22 07:19 BP 143/73 12/05/22 07:19 Pulse Ox 92 L 12/05/22 07:19 FiO2 Intake & Output 12/04/22 12/05/22 12/05/22 18:59 06:59 18:59 Intake Total 1381 Output Total 450 550 Balance 931 -550 Weight 90.9 kg Intake: IV 1051 Intake, IV Titration 330 Amount Sodium Chloride 0.9% 1, 280 000 ml @ 70 mls/hr IV . [id number] [facility] Rx#:[id number] ceFAZolin 2 gm In Sodium 50 Chloride 0.9% 50 ml @ 100 mls/hr IVPB Q8H [facility] Rx#: [id number] Output: Urine 150 550 Estimated Blood Loss 300 Other: Voiding Method External Catheter # Voids 2 1 - Exam This is a pleasant 87-year-old female in no acute distress. She is alert and oriented 3. Exam of the right lower extremity reveals that her dressing is clean, dry and intact. There is mild soft tissue swelling. She has full foot and ankle motion without difficulty or pain. Neurovascular status to the lower extremity is intact. - Labs CBC & Chem 7: 12/04/22 06:40 Assessment and Plan (1) Osteoarthritis of right hip Current Visit: Yes Status: Acute Code(s): M16.11 - UNILATERAL PRIMARY OSTEOARTHRITIS, RIGHT HIP SNOMED Code(s): 110472875132791 (2) S/P total right hip arthroplasty Current Visit: Yes Status: Acute Code(s): Z96.641 - PRESENCE OF RIGHT ARTIFICIAL HIP JOINT SNOMED Code(s): 841191883564 Plan: The clinical findings are discussed with the patient. She is anticipating discharge to rehab at discharge. We will begin physical therapy today. [facility].
[2022-12-05 09:24] LABS: BUN/Creat Ratio 24.33 Ratio (12.00-20.00); Blood Urea Nitrogen 14.6 mg/dL (9.0-27.0); Calcium 9.8 mg/dL (8.7-10.3); Carbon Dioxide 25.1 mmol/L (21.6-31.8); Chloride 102 mmol/L (96-109); Glucose 92 mg/dL (70-110); Potassium 4.9 mmol/L (3.5-5.5); Sodium 137 mmol/L (135-145)
[2022-12-05] MEDS: SODIUM CHLORIDE 0.9% 1,000 ML IV SCH (10:19)
[2022-12-05 13:41] LABS: Basophils # (A) 0.03 X 10*3/uL (0.00-0.10); Basophils % (A) 0.4 %; Eosinophils # (A) 0.01 X 10*3/uL (0.04-0.35); Eosinophils % (A) 0.1 %; HCT 28.1 % (37.2-46.3); HGB 8.9 d/dL (12.0-15.0); Lymphocytes # (A) 0.94 X 10*3/uL (0.90-5.00); Lymphocytes % (A) 11.1 %; MCH 29.4 pg (27.0-32.0); MCHC 31.7 d/dL (32.0-37.0); MCV 92.7 FL (80.0-97.0); Monocytes # (A) 0.92 X 10*3/uL (0.20-1.00); Monocytes % (A) 10.8 %; NRBC Per 100 WBC 0 X 10*3/uL (0.00-0.01); Neutrophils # (A) 6.55 X 10*3/uL (1.80-7.70); Neutrophils % (A) 77.2 %; Platelet Count 202 X 10*3/uL (140-440); RBC 3.03 X 10*6/uL (4.10-5.20); RDW 12.7 % (11.5-14.5); WBC 8.48 X 10*3/uL (4.50-10.00)
[2022-12-05] MEDS: SENNOSIDES-DOCUSATE SODIUM 1 EACH TAB PO SCH (19:45)
[2022-12-05] MEDS: LOSARTAN 50 MG TAB PO SCH (19:45)
[2022-12-05] MEDS ORDERED: CYCLOBENZAPRINE 10 MG TAB PO STA (21:14)
[2022-12-06] MEDS: SODIUM CHLORIDE 0.9% 1,000 ML IV SCH (03:57)
[2022-12-06] MEDS: LACTATED RINGERS 1,000 ML IV SCH (03:57)
--- NOTE | 2022-12-06 07:06 | P.PN ---
Subjective Progress Note Date: 12/05/22 - Reason for Consult Consult date: 12/04/22 Medical management - Chief Complaint Right total hip arthroplasty - History of Present Illness Patient is a 87-year-old female with a known history of hypertension, oste oarthritis and history of left total hip arthroplasty and prior history of smoking was admitted to the hospital for elective right total hip arthroplasty. Patient is status post right hip arthroplasty with direct anterior approach. Postoperative day 0. Pain is controlled at this time. Patient underwent nerve block. Otherwise denies any complaints of chest pain or shortness of breath. No nausea vomiting abdominal pain. No headache or dizziness or lightheadedness. Postoperatively blood pressure is elevated with SBP in 150s. 12/05/2022 Patient seen and evaluated in follow-up today that is post right total hip arthroplasty and currently sitting up in the chair. Patient was able to work with physical therapy reported some significant pain and is recommending rehab. Patient is agreeable case management following working on ECF. Patient is afebrile denies chest pain or shortness of breath. Patient reports a tolerating diet with no reports of nausea or vomiting. All medications reviewed and resumed as appropriate. Incentive spirometer at bedside and encourage the patient to continue using at least 10 times every hour while awake. Review of systems: Constitutional: No reports of fatigue, fever, or chills Cardiovascular: No reports of chest pain or palpitations Respiratory: No reports of shortness of breath or cough GI: No reports of nausea, vomiting, or diarrhea : No reports of dysuria or retention Neurovascular: reports of generalized weakness and right hip pain All medications have been reviewed Physical exam: Gen: This is a 87-year-old female who is awake, alert and oriented 3, well- developed, well-nourished, obese HEENT: Head is atraumatic, normocephalic. Pupils equal, round. Sclerae is anicteric. NECK: Supple. No JVD. No lymphadenopathy. No thyromegaly. LUNGS: Diminished breath sounds bilaterally with no wheezes or rhonchi. No intercostal retractions. HEART: Regular rate and rhythm. No murmur. ABDOMEN: Soft. Obese. Bowel sounds are present. No masses. No tenderness. EXTREMITIES: No pedal edema. No calf tenderness. NEUROLOGICAL: Patient is awake, alert and oriented x3. Cranial nerves 2 through 12 are grossly intact. Assessment: Status post right total hip arthroplasty postoperative day 1 Benign essential hypertension. Fairly controlled. Prior history of smoking Osteoarthritis Prior history of left total hip arthroplasty History of migraine headaches GI and DVT prophylaxis Plan: Patient will be continued on pain management, bowel regimen per orthopedics Incentive spirometer at bedside and encourage the patient to continue using at least 10 times every hour while awake Appropriate home medications have been reviewed and resumed Case management following an physical therapy evaluated recommending rehab and patient is agreeable. We will continue to follow with orthopedics during hospitalization. Thank you kindly for this consultation. Patient is medically stable for transfer to [facility] The impression and plan of care has been dictated by Tammy Moreno, Nurse Practitioner as directed. Dr. Pernell MD I have performed a history and examination and MDM of this patient, discussed the same with the dictator, and agree with the dictator's assessment and plan as written ,documented as a scribe. Based on total visit time, I have performed more than 50% of the visit. Objective - Vital Signs Vital signs: Vital Signs Temp 97.4 F L 12/05/22 07:19 Pulse 88 12/05/22 07:19 Resp 16 12/05/22 07:19 BP 143/73 12/05/22 07:19 Pulse Ox 92 L 12/05/22 07:19 FiO2 Intake & Output 12/04/22 12/05/22 12/05/22 18:59 06:59 18:59 Intake Total 1381 Output Total 450 550 Balance 931 -550 Weight 90.9 kg Intake: IV 1051 Intake, IV Titration 330 Amount Sodium Chloride 0.9% 1, 280 000 ml @ 70 mls/hr IV . [id number] [facility] Rx#:[id number] ceFAZolin 2 gm In Sodium 50 Chloride 0.9% 50 ml @ 100 mls/hr IVPB Q8H [facility] Rx#: [id number] Output: Urine 150 550 Estimated Blood Loss 300 Other: Voiding Method External Catheter # Voids 2 1 - Labs CBC & Chem 7: 12/05/22 05:10 12/05/22 05:10 Labs: Abnormal Lab Results - Last 24 Hours (Table) 12/05/22 Range/Units 05:10 BUN/Creatinine Ratio 24.33 H (12.00-20.00) Ratio
[2022-12-06] MEDS ORDERED: ACETAMINOPHEN TAB 325 MG TAB PO PRN (07:07)
[2022-12-06] MEDS: amLODIPine 5 MG TAB PO SCH (08:22)
[2022-12-06] MEDS: traMADol 50 MG TAB PO PRN ×2 (08:22→20:39)
[2022-12-06] MEDS: ASPIRIN 325 MG TAB PO SCH ×2 (08:22→20:36)
[2022-12-06] MEDS: PANTOPRAZOLE 40 MG TABLET PO SCH ×2 (08:22→18:14)
[2022-12-06] MEDS: TIMOLOL 0.5% OPHTH DROPS 5 ML BTL BOTH EYES SCH (08:28)
[2022-12-06] MEDS: HYDROcodone/APAP 5-325MG 1 EACH TAB PO PRN ×2 (11:21→18:14)
--- NOTE | 2022-12-06 15:11 | P.PN ---
Subjective Progress Note Date: 12/06/22 This is an 87-year-old female who is status post right total hip arthroplasty. This is postoperative day #2 and patient is seen and evaluated at bedside today. Patient states that she is doing well and has been able to work with physical therapy. Objective - Vital Signs Vital signs: Vital Signs Temp 96.9 F L 12/06/22 14:00 Pulse 74 12/06/22 14:00 Resp 17 12/06/22 14:00 BP 109/72 12/06/22 14:00 Pulse Ox 98 12/06/22 14:00 FiO2 Intake & Output 12/05/22 12/06/22 12/06/22 18:59 06:59 18:59 Output Total 900 Balance -900 Output: Urine 900 Other: Voiding Method Toilet Toilet Toilet Bedside Commode External Catheter External Catheter External Catheter # Voids 1 - Exam On exam patient is sitting comfortably in a chair in no acute distress. Patient is alert and oriented x3. Dressing is clean, dry and intact. No drainage. No erythema. Calf is soft and nontender to palpation. Sensation intact. Patient has full range of motion of the foot and ankle. Neurovascular status and circulatory status are intact. - Labs CBC & Chem 7: 12/05/22 05:10 12/05/22 05:10 Assessment and Plan (1) Osteoarthritis of right hip Current Visit: Yes Status: Acute Code(s): M16.11 - UNILATERAL PRIMARY OSTEOARTHRITIS, RIGHT HIP SNOMED Code(s): 240035154649436 (2) S/P total right hip arthroplasty Current Visit: Yes Status: Acute Code(s): Z96.641 - PRESENCE OF RIGHT ARTIFICIAL HIP JOINT SNOMED Code(s): 840466625196 Plan: 1. Weightbearing as tolerated with walker. Continue physical therapy. 2. Continue routine postoperative care and pain control. 3. Dressing to stay intact for 7 days. 4. Continue aspirin for DVT prophylaxis. 5. Patient is awaiting ECF placement.
[2022-12-06] MEDS: LOSARTAN 50 MG TAB PO SCH (20:36)
[2022-12-06] MEDS: SENNOSIDES-DOCUSATE SODIUM 1 EACH TAB PO SCH (20:36)
[2022-12-07] MEDS: HYDROcodone/APAP 5-325MG 1 EACH TAB PO PRN ×2 (04:45→12:53)
[2022-12-07] MEDS: PANTOPRAZOLE 40 MG TABLET PO SCH (06:21)
[2022-12-07] MEDS: ASPIRIN 325 MG TAB PO SCH (08:42)
[2022-12-07] MEDS: amLODIPine 5 MG TAB PO SCH (08:42)
[2022-12-07] MEDS: TIMOLOL 0.5% OPHTH DROPS 5 ML BTL BOTH EYES SCH (08:43)
[2022-12-07] MEDS: traMADol 50 MG TAB PO PRN (08:45)
--- NOTE | 2022-12-07 09:37 | P.PN ---
Subjective Progress Note Date: 12/06/22 - Reason for Consult Consult date: 12/04/22 Medical management - Chief Complaint Right total hip arthroplasty - History of Present Illness Patient is a 87-year-old female with a known history of hypertension, oste oarthritis and history of left total hip arthroplasty and prior history of smoking was admitted to the hospital for elective right total hip arthroplasty. Patient is status post right hip arthroplasty with direct anterior approach. Postoperative day 0. Pain is controlled at this time. Patient underwent nerve block. Otherwise denies any complaints of chest pain or shortness of breath. No nausea vomiting abdominal pain. No headache or dizziness or lightheadedness. Postoperatively blood pressure is elevated with SBP in 150s. 12/05/2022 Patient seen and evaluated in follow-up today that is post right total hip arthroplasty and currently sitting up in the chair. Patient was able to work with physical therapy reported some significant pain and is recommending rehab. Patient is agreeable case management following working on [facility]. Patient is afebrile denies chest pain or shortness of breath. Patient reports a tolerating diet with no reports of nausea or vomiting. All medications reviewed and resumed as appropriate. Incentive spirometer at bedside and encourage the patient to continue using at least 10 times every hour while awake. 12/06/2022 Patient is seen in follow-up this morning currently sitting in the chair continues to report some right hip discomfort although reports is more manageable today. Patient states she was able to work with his therapy and will be going to rehab. Patient reports she will be going to [facility] on discharge. Patient is afebrile denies chest pain or shortness of breath. Patient reports a tolerating diet and is passing gas. Patient is urinating with no difficulties. Patient does have incentive spirometer at the bedside and encourage the patient to continue using even while at rehab. Patient is medically stable for discharge to [facility]. Review of systems: Constitutional: No reports of fatigue, fever, or chills Cardiovascular: No reports of chest pain or palpitations Respiratory: No reports of shortness of breath or cough GI: No reports of nausea, vomiting, or diarrhea : No reports of dysuria or retention Neurovascular: reports of generalized weakness and right hip pain All medications have been reviewed Physical exam: Gen: This is a 87-year-old female who is awake, alert and oriented 3, well- developed, well-nourished, obese HEENT: Head is atraumatic, normocephalic. Pupils equal, round. Sclerae is anicteric. NECK: Supple. No JVD. No lymphadenopathy. No thyromegaly. LUNGS: Diminished breath sounds bilaterally with no wheezes or rhonchi. No intercostal retractions. HEART: Regular rate and rhythm. No murmur. ABDOMEN: Soft. Obese. Bowel sounds are present. No masses. No tenderness. EXTREMITIES: No pedal edema. No calf tenderness. NEUROLOGICAL: Patient is awake, alert and oriented x3. Cranial nerves 2 through 12 are grossly intact. Assessment: Status post right total hip arthroplasty Benign essential hypertension. Fairly controlled. Prior history of smoking Osteoarthritis Prior history of left total hip arthroplasty History of migraine headaches GI and DVT prophylaxis Plan: Patient will be continued on pain management, bowel regimen per orthopedics Incentive spirometer at bedside and encourage the patient to continue using at least 10 times every hour while awake Appropriate home medications have been reviewed and resumed Case management following an physical therapy evaluated recommending rehab and patient is agreeable. Patient reports she is going to [facility] We will continue to follow with orthopedics during hospitalization. Thank you kindly for this consultation. Patient is medically stable for transfer to [facility] The impression and plan of care has been dictated by Tammy Moreno, Nurse Practitioner as directed. Dr. Pernell MD I have performed a history and examination and MDM of this patient, discussed the same with the dictator, and agree with the dictator's assessment and plan as written ,documented as a scribe. Based on total visit time, I have performed more than 50% of the visit. Objective - Vital Signs Vital signs: Vital Signs Temp 97.3 F L 12/06/22 07:12 Pulse 95 12/06/22 07:12 Resp 16 12/06/22 07:12 BP 134/77 12/06/22 07:12 Pulse Ox 92 L 12/06/22 07:12 FiO2 Intake & Output 12/05/22 12/06/22 12/06/22 18:59 06:59 18:59 Output Total 900 Balance -900 Output: Urine 900 Other: Voiding Method Toilet Toilet Bedside Commode External Catheter External Catheter # Voids 1 - Labs CBC & Chem 7: 12/05/22 05:10 12/05/22 05:10 Labs: Abnormal Lab Results - Last 24 Hours (Table) 12/05/22 Range/Units 05:10 RBC 3.03 L (4.10-5.20) X 10*6/uL Hgb 8.9 L (12.0-15.0) d/dL Hct 28.1 L (37.2-46.3) % MCHC 31.7 L (32.0-37.0) d/dL Eosinophils # 0.01 L (0.04-0.35) X 10*3/uL
--- NOTE | 2022-12-07 09:46 | P.PN ---
Subjective Progress Note Date: 12/07/22 - Reason for Consult Consult date: 12/04/22 Medical management - Chief Complaint Right total hip arthroplasty - History of Present Illness Patient is a 87-year-old female with a known history of hypertension, oste oarthritis and history of left total hip arthroplasty and prior history of smoking was admitted to the hospital for elective right total hip arthroplasty. Patient is status post right hip arthroplasty with direct anterior approach. Postoperative day 0. Pain is controlled at this time. Patient underwent nerve block. Otherwise denies any complaints of chest pain or shortness of breath. No nausea vomiting abdominal pain. No headache or dizziness or lightheadedness. Postoperatively blood pressure is elevated with SBP in 150s. 12/05/2022 Patient seen and evaluated in follow-up today that is post right total hip arthroplasty and currently sitting up in the chair. Patient was able to work with physical therapy reported some significant pain and is recommending rehab. Patient is agreeable case management following working on [facility]. Patient is afebrile denies chest pain or shortness of breath. Patient reports a tolerating diet with no reports of nausea or vomiting. All medications reviewed and resumed as appropriate. Incentive spirometer at bedside and encourage the patient to continue using at least 10 times every hour while awake. 12/06/2022 Patient is seen in follow-up this morning currently sitting in the chair continues to report some right hip discomfort although reports is more manageable today. Patient states she was able to work with his therapy and will be going to rehab. Patient reports she will be going to [facility] on discharge. Patient is afebrile denies chest pain or shortness of breath. Patient reports a tolerating diet and is passing gas. Patient is urinating with no difficulties. Patient does have incentive spirometer at the bedside and encourage the patient to continue using even while at rehab. Patient is medically stable for discharge to [facility]. 12/07/2022 Patient is seen this morning and is scheduled to go to [facility] for continued st rength and mobility. Patient is status post right hip arthroplasty and has been working with physical therapy. Patient with significant weakness would benefit from ECF and has been approved for insurance authorization obtained. Patient is currently afebrile and vital signs are stable and patient is medically stable for discharge to [facility] today. Patient has been encouraged to continue using incen tive spirometer at least 10 times every hour while awake even in the ECF. Patient also has been instructed to follow-up with primary care provider in the outpatient setting once discharged from [facility]. Review of systems: Constitutional: No reports of fatigue, fever, or chills Cardiovascular: No reports of chest pain or palpitations Respiratory: No reports of shortness of breath or cough GI: No reports of nausea, vomiting, or diarrhea : No reports of dysuria or retention Neurovascular: reports of generalized weakness and right hip pain All medications have been reviewed Physical exam: Gen: This is a 87-year-old female who is awake, alert and oriented 3, well- developed, well-nourished, obese HEENT: Head is atraumatic, normocephalic. Pupils equal, round. Sclerae is anicteric. NECK: Supple. No JVD. No lymphadenopathy. No thyromegaly. LUNGS: Diminished breath sounds bilaterally with no wheezes or rhonchi. No intercostal retractions. HEART: Regular rate and rhythm. No murmur. ABDOMEN: Soft. Obese. Bowel sounds are present. No masses. No tenderness. EXTREMITIES: No pedal edema. No calf tenderness. NEUROLOGICAL: Patient is awake, alert and oriented x3. Cranial nerves 2 through 12 are grossly intact. Assessment: Status post right total hip arthroplasty Benign essential hypertension. Fairly controlled. Prior history of smoking Osteoarthritis Prior history of left total hip arthroplasty History of migraine headaches GI and DVT prophylaxis Plan: Patient will be continued on pain management, bowel regimen per orthopedics. Patient is going on 2 aspirin daily for DVT prophylaxis Incentive spirometer at bedside and encourage the patient to continue using at least 10 times every hour while awake Appropriate home medications have been reviewed and resumed. Med reconciliation complete Case management following and physical therapy evaluated recommending rehab and patient is agreeable. Patient has been accepted to [facility] and insurance authorization has been obtained We will continue to follow with orthopedics during hospitalization. Thank you kindly for this consultation. Patient is medically stable for transfer to [facility] today. The impression and plan of care has been dictated by Tammy Moreno, Nurse Practitioner as directed. Dr. Pernell MD I have performed a history and examination and MDM of this patient, discussed the same with the dictator, and agree with the dictator's assessment and plan a s written ,documented as a scribe. Based on total visit time, I have performed more than 50% of the visit. Objective - Vital Signs Vital signs: Vital Signs Temp 98.5 F 12/07/22 07:05 Pulse 73 12/07/22 07:05 Resp 17 12/07/22 07:05 BP 136/66 12/07/22 07:05 Pulse Ox 96 12/07/22 07:05 FiO2 Intake & Output 12/06/22 12/07/22 12/07/22 18:59 06:59 18:59 Output Total 1300 400 Balance -1300 -400 Output: Urine 1300 400 Other: Voiding Method Toilet External Catheter External Catheter - Labs CBC & Chem 7: 12/05/22 05:10 12/05/22 05:10
[2022-12-07 10:40] VITALS: RESP 18
[2022-12-07 11:10] LABS: Basophils # (A) 0.06 X 10*3/uL (0.00-0.10); Basophils % (A) 0.8 %; Eosinophils # (A) 0.18 X 10*3/uL (0.04-0.35); Eosinophils % (A) 2.5 %; HCT 27.6 % (37.2-46.3); HGB 8.4 d/dL (12.0-15.0); Lymphocytes # (A) 1.17 X 10*3/uL (0.90-5.00); Lymphocytes % (A) 16.1 %; MCH 28.4 pg (27.0-32.0); MCHC 30.4 d/dL (32.0-37.0); MCV 93.2 FL (80.0-97.0); Mean Platelet Volume 10.1 FL (9.5-12.2); Monocytes # (A) 0.76 X 10*3/uL (0.20-1.00); Monocytes % (A) 10.4 %; NRBC Per 100 WBC 0 X 10*3/uL (0.00-0.01); Neutrophils # (A) 5.09 X 10*3/uL (1.80-7.70); Neutrophils % (A) 69.9 %; Platelet Count 212 X 10*3/uL (140-440); RBC 2.96 X 10*6/uL (4.10-5.20); RDW 12.8 % (11.5-14.5); WBC 7.28 X 10*3/uL (4.50-10.00)
--- NOTE | 2022-12-07 12:33 | P.DS ---
Providers Date of admission: 12/04/22 14:44 Expected date of discharge: 12/07/22 Attending physician: Wallace Dunn Consults: 12/04/22 08:41 Consult Physician Routine Consulting Provider: Millie Connell Consult Reason/Comments: medical management Do you want consulting provider notified?: Yes Primary care physician: Bar Chavis MD - Discharge Diagnosis(es) (1) Osteoarthritis of right hip Current Visit: Yes Status: Acute (2) S/P total right hip arthroplasty Current Visit: Yes Status: Acute Hospital Course: This is a 87-year-old female with known history of degenerative arthritis of the right hip. The patient presented for evaluation as an outpatient. After discussion and consideration patient elects to proceed with total hip arthroplasty. The patient is seen preoperatively by Dr. Dunn and medically cleared for surgery by their primary care physician. Patient is admitted to [facility] on 12/04/2022 for total hip arthroplasty. The procedure is performed without complication or sequelae. The patient is doing well postoperatively. Labs and vital signs are stable on day of discharge. On day of discharge patient's hip incision is healing well. There is minimal erythema. There is no drainage noted at this time. There is minimal soft tissue swelling to the hip and thigh. Patient has full foot and ankle motion without difficulty or pain. Calf is soft and nontender to palpation. Neurovascular status to the right lower extremity is intact. Patient is discharged to rehab in good condition. Please see med rec for accurate list of home medications. Plan - Discharge Summary Discharge Rx Participant: No New Discharge Prescriptions: New Magnesium Hydroxide [Milk of Magnesia] 2,400 mg PO DAILY PRN ml PRN Reason: Constipation Pantoprazole [Protonix] 40 mg PO AC-BID tab Acetaminophen Tab [Tylenol] 650 mg PO Q6HR PRN tab PRN Reason: Fever And/ Or Pain Aspirin 325 mg PO BID #60 tab Sennosides [Senokot] 2 tab PO DAILY PRN #60 tablet PRN Reason: Constipation traMADol HCl [Ultram] 1 - 2 tab PO Q6H PRN #32 tab PRN Reason: Pain Continue Timolol 0.5% Ophth Soln [Timoptic 0.5% Ophth Soln] 1 drop BOTH EYES QAM Losartan Potassium 100 mg PO HS Furosemide [Lasix] 20 mg PO QAM PRN PRN Reason: LEG SWELLING SUMAtriptan succinate [Imitrex] 50 mg PO DAILY PRN PRN Reason: MIGRAINE HEADACHES amLODIPine [Norvasc] 5 mg PO QAM Discontinued Aspirin [Adult Low Dose Aspirin EC] 81 mg PO DAILY Acetaminophen/Diphenhydramine [Tylenol PM 500-25mg] 1 tab PO HS Discharge Medication List Losartan Potassium 100 mg PO HS 10/04/20 [History] Timolol 0.5% Ophth Soln [Timoptic 0.5% Ophth Soln] 1 drop BOTH EYES QAM 10/04/20 [History] Furosemide [Lasix] 20 mg PO QAM PRN 06/22/22 [History] SUMAtriptan succinate [Imitrex] 50 mg PO DAILY PRN 11/27/22 [History] amLODIPine [Norvasc] 5 mg PO QAM 11/27/22 [History] Aspirin 325 mg PO BID #60 tab 12/04/22 [Rx] Sennosides [Senokot] 2 tab PO DAILY PRN #60 tablet 12/04/22 [Rx] traMADol HCl [Ultram] 1 - 2 tab PO Q6H PRN #32 tab 12/04/22 [Rx] Acetaminophen Tab [Tylenol] 650 mg PO Q6HR PRN tab 12/07/22 [Rx] Magnesium Hydroxide [Milk of Magnesia] 2,400 mg PO DAILY PRN ml 12/07/22 [Rx] Pantoprazole [Protonix] 40 mg PO AC-BID tab 12/07/22 [Rx] Follow up Appointment(s)/Referral(s): Wallace Dunn DO [Doctor of Osteopathic Medicine] - 12/17/22 1:00 pm Activity/Diet/Wound Care/Special Instructions: Weightbearing as tolerated with walker. Leave dressing intact. Dressing may be removed by home care nurse or by patient in 7 days. Then change dressing twice daily until follow up. May shower with initial dressing intact and after removal. If dressing become saturated, please remove. Please take aspirin 325mg twice daily for 30 days to prevent blood clots. Recommend use of compression stockings daily until follow up to help prevent swelling and blood clots. May remove at night before sleeping. Please follow-up with [facility] in 2 weeks and call with any questions or concerns, . Discharge Disposition: TRANSFER TO SNF/F
[2022-12-07 14:33] VITALS: BP 102/62; PULSE 69; TEMP 98.9
== END 2022-12-07 14:41 | DRG 470 ==
LOC: OR 05:39 → 4SSUR 08:32 → OR 14:44 → 4SSUR 14:44
PROVIDERS: ADMIT Orthopaedic Surgery; ATTEND Orthopaedic Surgery
PROC: 0SR902A Replacement of Right Hip Joint with Metal on Polyethylene Synthetic Substitute, Uncemented, Open Approach (ICD-10-PCS; principal; 2022-12-04 07:00)
DX: M16.11 Unilateral primary osteoarthritis, right hip (principal); I10 Essential (primary) hypertension; Z96.642 Presence of left artificial hip joint; Z79.82 Long term (current) use of aspirin; Z87.891 Personal history of nicotine dependence; Z90.710 Acquired absence of both cervix and uterus
CPT/HCPCS: 64447; 73501; 80048; 84132; 85025; 86850; 86900; 86901

== ENCOUNTER 2022-12-30 20:18 | Observation (INO) | payer MEDICARE, BC ==
[2022-12-30] MEDS ORDERED: VANCOMYCIN IV PER PHARMACY 1 EACH MISC MISCELLANE PRN (20:54)
[2022-12-30] MEDS ORDERED: VANCOMYCIN 1,500 MG in SODIUM CHLORIDE 0.9% 500 ML 500 ML IVPB STA (20:59)
--- NOTE | 2022-12-30 21:37 | ED ---
Extremity Problem HPI - General Chief complaint: Extremity Problem,Nontraumatic Stated complaint: Abscess Time Seen by Provider: 12/30/22 20:29 Source: EMS Mode of arrival: EMS - History of Present Illness Initial comments: Shital is an 87-year-old female who underwent a right hip arthroplasty with Dr. Dunn on December 04. She did well throughout her recovery but today was taken to an outside hospital for evaluation of dehiscence of her surgical wound. Patient has some mild tenderness the wound is open and draining. Fluid. Computed tomography scan at the outside facility revealed a 2.5 x 10 cm fluid collection that could be an abscess. Labs are unremarkable. - Related Data Home Medications Medication Instructions Recorded Confirmed Losartan Potassium 100 mg PO HS 10/04/20 11/27/22 Furosemide [Lasix] 20 mg PO QAM PRN 06/22/22 11/27/22 SUMAtriptan succinate [Imitrex] 50 mg PO DAILY PRN 11/27/22 11/27/22 amLODIPine [Norvasc] 5 mg PO QAM 11/27/22 11/27/22 Acetaminophen [Tylenol 8 Hour] 650 mg PO Q8H PRN 12/30/22 12/30/22 Aspirin EC [Ecotrin Low Dose] 81 mg PO HS 12/30/22 12/30/22 Multivitamins, Thera [Multivitamin 1 tab PO DAILY 12/30/22 12/30/22 (formulary)] Timolol 0.5% Ophth Soln [Timoptic 1 drop BOTH EYES DAILY 12/30/22 12/30/22 0.5% Ophth Soln] traMADol HCl [Ultram] 1 tab PO Q6H PRN 12/30/22 12/30/22 Allergies Allergy/AdvReac Type Severity Reaction Status Date / Time Penicillins Allergy Rash/Hives Verified 12/30/22 21:31 sulfamethoxazole Allergy Unknown Verified 12/30/22 21:31 [From Bactrim] trimethoprim [From Bactrim] Allergy Unknown Verified 12/30/22 21:31 Review of Systems ROS Statement: Those systems with pertinent positive or pertinent negative responses have been documented in the HPI. ROS Other: All systems not noted in ROS Statement are negative. Past Medical History Past Medical History: Hypertension Additional Past Medical History / Comment(s): LEG SWELLING. LEG SWELLING History of Any Multi-Drug Resistant Organisms: None Reported Past Surgical History: Hysterectomy, Orthopedic Surgery Additional Past Surgical History / Comment(s): L total hip/hardware loosened and had IM cheryl placed. Bilateral feet bunionectomies,. EGD, colonoscopies, bilateral cataract removals Past Anesthesia/Blood Transfusion Reactions: No Reported Reaction Past Psychological History: No Psychological Hx Reported Smoking Status: Former smoker Past Alcohol Use History: None Reported Past Drug Use History: None Reported - Past Family History Father Family Medical History: Osteoarthritis (OA) Additional Family Medical History / Comment(s): Heart problems Mother Family Medical History: Osteoarthritis (OA), Renal Disease General Exam - General Exam Comments Initial Comments: Physical Exam GENERAL: Patient is well-developed and well-nourished. Patient is nontoxic and well-hydrated and is in no distress. HENT: Normocephalic, Atraumatic. EYES: PERRL, EOMI PULMONARY: Unlabored respirations. CARDIOVASCULAR: RRR Warm and well perfused extremities ABDOMEN: Non-distended SKIN: Incision on the anterior hip is dehisced, there is granulation tissue, minimal surrounding cellulitis there is some tenderness to palpation there is some mildly purulent discharge : Deferred NEUROLOGIC: Alert and oriented Normal speech Normal gait MUSCULOSKELETAL: Moving all extremities with no apparent injury PSYCHIATRIC: No SI/HI Course Vital Signs 12/30/22 20:20 Temperature 97.5 F L Pulse Rate 80 Respiratory 16 Rate Blood Pressure 181/86 O2 Sat by Pulse 100 Oximetry Medical Decision Making - Medical Decision Making Patient care was discussed with transferring physician Upon arrival patient was reevaluated she does have wound dehiscence Blood cultures were ordered, IV antibiotics ordered Patient care was discussed with Dr. Abbott who agrees with plan for admission to their team with medicine on consult Was pt. sent in by a medical professional or institution (, PA, ONLINE MARKETING SPECIALIST, urgent care, hospital, or [place] health care facility...) When possible be specific @ from [place] Dr. Chavis Did you speak to anyone other than the patient for history (EMS, parent, family, police, friend...)? What history was obtained from this source @ -Transferring physician Did you review nursing and triage notes (agree or disagree)? Why? @ -I reviewed and agree with nursing and triage notes Were old charts reviewed (outside hosp., previous admission, EMS record, old EKG, old radiological studies, urgent care reports/EKG's, [place] health care facility records)? Report findings @ -OR reports were reviewed Differential Diagnosis (chest pain, altered mental status, abdominal pain women, abdominal pain men, vaginal bleeding, weakness, fever, dyspnea, syncope, headache, dizziness, GI bleed, back pain, seizure, CVA, palpatations, mental health, musculoskeletal)? @ -Abscess versus seroma versus hematoma EKG interpreted by me (3pts min.). @ -As above X-rays interpreted by me (1pt min.). @ -None done CT interpreted by me (1pt min.). @ -None done U/S interpreted by me (1pt. min.). @ -None done What testing was considered but not performed or refused? (CT, X-rays, U/S, labs)? Why? @ -None What meds were considered but not given or refused? Why? @ -None Did you discuss the management of the patient with other professionals (professionals i.e. , PA, ONLINE MARKETING SPECIALIST, lab, RT, psych nurse, licensed social worker, mixer dry food products, teacher, multisensor intelligence officer, welfare case worker)? Give summary @ -Discussed with orthopedics and medicine Was smoking cessation discussed for >3mins.? @ -No Was critical care preformed (if so, how long)? @ -No Were there social determinants of health that impacted care today? How? (Homelessness, low income, unemployed, alcoholism, drug addiction, transportation, low edu. Level, literacy, decrease access to med. care, senior living, rehab)? @ -No Was there de-escalation of care discussed even if they declined (Discuss DNR or withdrawal of care, Hospice)? DNR status @ -No What co-morbidities impacted this encounter? (DM, HTN, Smoking, COPD, CAD, Cancer, CVA, ARF, Chemo, Hep., AIDS, mental health diagnosis, sleep apnea, morbid obesity)? @ -None Was patient admitted / discharged? Hospital course, mention meds given and route, prescriptions, significant lab abnormalities, going to OR and other pertinent info. @ -Admit Undiagnosed new problem with uncertain prognosis? @ -No Drug Therapy requiring intensive monitoring for toxicity (Heparin, Nitro, Insulin, Cardizem)? @ -No Were any procedures done? @ -No Diagnosis/symptom? @ -Postop infection Acute, or Chronic, or Acute on Chronic? @ -default Uncomplicated (without systemic symptoms) or Complicated (systemic symptoms)? @ -Uncomplicated Side effects of treatment? @ -No Exacerbation, Progression, or Severe Exacerbation? @ -No Poses a threat to life or bodily function? How? (Chest pain, [place], [place], pneumonia, PE, COPD, DKA, ARF, appy, cholecystitis, CVA, Diverticulitis, Homicidal, Suicidal, threat to staff... and all critical care pts) @ -No Disposition Clinical Impression: Postoperative infection Disposition: ADMITTED IP TO THIS HOSP Condition: Stable Is patient prescribed a controlled substance at d/c from ED?: No Referrals: None,Stated [REFERRING] - 1-2 days
[2022-12-30] MEDS ORDERED: NALOXONE 0.4 MG/ML 1 ML VIAL IV PRN (21:38)
[2022-12-30] MEDS ORDERED: MORPHINE SULFATE 4 MG/ML SYRINGE IVP PRN (22:07)
--- NOTE | 2022-12-30 22:27 | US ---
EXAMINATION TYPE: US venous doppler duplex LE RT DATE OF EXAM: 12/30/2022 10:20 PM COMPARISON: None CLINICAL INDICATION: Female, 87 years old with history of edema; recent rt hip replacement with curre nt infection. Pain. SIDE PERFORMED: Right TECHNIQUE: The lower extremity deep venous system is examined utilizing real time linear array sonog alex with graded compression, doppler sonography and color-flow sonography. VESSELS IMAGED: Common Femoral Vein Deep Femoral Vein Greater Saphenous Vein * Femoral Vein Popliteal Vein Small Saphenous Vein * Proximal Calf Veins (* superficial vessels) Right Leg: Negative for DVT. Patient could not tolerate mid and distal FV compression due to pain. IMPRESSION: Grayscale, color doppler, spectral doppler imaging performed of the deep veins of the lo wer extremities. There is normal flow, compressibility, vascular waveforms.
[2022-12-30] MEDS: HYDROcodone/APAP 5-325MG 1 EACH TAB PO PRN (23:10)
[2022-12-31 01:22] LABS: African American GFR (CKD) >90 (>60 ml/min/1.73 sqM); Anion Gap 7 mmol/L; Blood Urea Nitrogen 12 mg/dL (7-17); Calcium 9.4 mg/dL (8.4-10.2); Carbon Dioxide 20 mmol/L (22-30); Chloride 106 mmol/L (98-107); Glucose 83 mg/dL (74-99); Non-African American GFR(CKD) 89 (>60 ml/min/1.73 sqM); Potassium 3.9 mmol/L (3.5-5.1); Sodium 133 mmol/L (137-145)
--- NOTE | 2022-12-31 02:57 | P.CONS ---
History of Present Illness - Reason for Consult Consult date: 12/30/22 Medical management - Chief Complaint Right hip pain, wound drainage - History of Present Illness 87-year-old female with hypertension Patient had right hip replacement done on December 04. Tolerated procedure well however over the past 3 days she noticed some pain over the surgical site over the right hip she denies any fevers or chills she denies any significant drainage however today pain was getting worse and she started noticing some erythema and the wound was opened for which she decided to go to [facility] for evaluation facility for further care and evaluation by orthopedic team CT imaging of the right hip was suggestive of possible fluid collection suspicious of abscess at the surgical site Patient again denies any falls denies any trauma to the surgical site denies any fevers or chills denies any nausea vomiting chest pain trouble breathing she denies any bleeding from surgical site review of systems Pertinent positives as noted in HPI. All other systems were reviewed and are negative on exam Constitutional: No acute distress, conversant, pleasant Eyes: Anicteric sclerae, moist conjunctiva, Pupils equal round reactive to light ENMT: NC/AT Oropharynx clear, no erythema, or exudates Neck: Supple, no masses, or JVD No carotid bruits No thyromegaly Lungs: Clear to auscultation Clear to percussion Normal respiratory effort, no accessory muscle use Cardiovascular: Heart regular in rate and rhythm, No murmurs, gallops, or rubs No peripheral edema Abdominal: Soft Nontender, no guarding, rebound or rigidity Abdomen moving with respiration Normoactive bowel sounds No hepatomegaly, No splenomegaly No palpable mass No abdominal wall hernia noted Skin: Wound dehiscence over the surgical site no active drainage, tender to palpation with slight erythema and induration around the wound Extremities: No digital cyanosis No clubbing Pedal pulses intact and symmetrical Radial pulses intact and symmetrical No calf tenderness Psychiatric: Alert and oriented to person, place and time Appropriate affect fair judgement Neuro Muscles Strength 4/5 in all 4 extremities Sensation to light touch grossly present throughout Cranial nerves II-XII grossly intact Past Medical History Past Medical History: Hypertension Additional Past Medical History / Comment(s): LEG SWELLING. LEG SWELLING History of Any Multi-Drug Resistant Organisms: None Reported Past Surgical History: Hysterectomy, Orthopedic Surgery Additional Past Surgical History / Comment(s): L total hip/hardware loosened and had IM cheryl placed. Bilateral feet bunionectomies,. EGD, colonoscopies, bilateral cataract removals Past Anesthesia/Blood Transfusion Reactions: No Reported Reaction Past Psychological History: No Psychological Hx Reported Smoking Status: Former smoker Past Alcohol Use History: None Reported Past Drug Use History: None Reported - Past Family History Father Family Medical History: Osteoarthritis (OA) Additional Family Medical History / Comment(s): Heart problems Mother Family Medical History: Osteoarthritis (OA), Renal Disease Medications and Allergies Home Medications Medication Instructions Recorded Confirmed Type Losartan Potassium 100 mg PO DAILY 10/04/20 12/30/22 History Furosemide [Lasix] 20 mg PO DAILY PRN 06/22/22 12/30/22 History SUMAtriptan succinate [Imitrex] 50 mg PO BID PRN 11/27/22 12/30/22 History amLODIPine [Norvasc] 5 mg PO DAILY 11/27/22 12/30/22 History Acetaminophen [Tylenol 8 Hour] 650 mg PO Q8H PRN 12/30/22 12/30/22 History Aspirin EC [Ecotrin Low Dose] 81 mg PO HS 12/30/22 12/30/22 History Multivitamins, Thera [Multivitamin 1 tab PO DAILY 12/30/22 12/30/22 History (formulary)] Timolol 0.5% Ophth Soln [Timoptic 1 drop BOTH EYES DAILY 12/30/22 12/30/22 History 0.5% Ophth Soln] traMADol HCl [Ultram] 1 tab PO Q6H PRN 12/30/22 12/30/22 History Allergies Allergy/AdvReac Type Severity Reaction Status Date / Time Penicillins Allergy Rash/Hives Verified 12/30/22 21:31 sulfamethoxazole Allergy Unknown Verified 12/30/22 21:31 [From Bactrim] trimethoprim [From Bactrim] Allergy Unknown Verified 12/30/22 21:31 Physical Exam Vitals: Vital Signs Temp Pulse Resp BP Pulse Ox 12/30/22 22:23 144/82 12/30/22 20:20 97.5 F L 80 16 181/86 100 Intake and Output 12/30/22 12/30/22 12/31/22 14:59 22:59 06:59 Other: Weight 90.718 kg Results CBC & Chem 7: 12/31/22 00:46 Labs: Abnormal Lab Results - Last 24 Hours (Table) 12/31/22 Range/Units 00:46 Sodium 133 L (137-145) mmol/L Carbon Dioxide 20 L (22-30) mmol/L Creatinine 0.45 L (0.52-1.04) mg/dL Assessment and Plan Assessment: Accelerated hypertension Resume home blood pressure medications amlodipine and losartan Close monitoring of blood pressure If it doesn't improve, consider clonidine when necessary for systolic above 180 Right hip surgical wound dehiscence with possible abscess Management per primary surgical team Continue with vancomycin Follow-up cultures CT imaging of the right hip showed possible fluid collection on the lateral aspect of the right hip suspicious of abscess collection Blood work unremarkable showing white count of 5.1 patient afebrile Hemoglobin 9.4 patient denies any bleeding Sodium 134 potassium 4.2 creatinine 0.6 DVT prophylaxis heparin subcu 3 times a day Full code Thank you for this consultation continue follow-up with the
[2022-12-31] MEDS: amLODIPine 5 MG TAB PO SCH ×2 (08:20→12:50)
[2022-12-31] MEDS: LOSARTAN 50 MG TAB PO SCH ×2 (08:20→12:50)
[2022-12-31] MEDS ORDERED: VANCOMYCIN 1,500 MG in SODIUM CHLORIDE 0.9% 500 ML 500 ML IVPB SCH (09:00)
--- NOTE | 2022-12-31 12:16 | XR ---
EXAMINATION TYPE: XR Hip RT and AP Pelvis DATE OF EXAM: 12/31/2022 CLINICAL HISTORY: pain TECHNIQUE: AP and frogleg views of the right hip are obtained. Single view pelvis also submitted. COMPARISON: None. FINDINGS: There is no acute fracture/dislocation evident. Bilateral total hip prostheses noted in pl [place] with femoral and acetabular components appearing well seated. The overlying soft tissue appears u nremarkable. IMPRESSION: 1. There is no acute fracture or dislocation. ICD 10 NO FRACTURE, INITIAL EVALUATION
[2022-12-31 12:17] LABS: Basophils % (A) 1 %; Eosinophils # (A) 0.3 k/uL (0-0.7); Eosinophils % (A) 5 %; HCT 33.9 % (34.0-46.0); HGB 10.7 gm/dL (11.4-16.0); Hypochromasia Marked; Lymphocytes # (A) 1.4 k/uL (1.0-4.8); Lymphocytes % (A) 25 %; MCH 27.4 pg (25.0-35.0); MCHC 31.5 g/dL (31.0-37.0); MCV 86.8 fL (80.0-100.0); Mean Platelet Volume 10.1; Monocytes # (A) 0.5 k/uL (0-1.0); Monocytes % (A) 9 %; Neutrophils # (A) 3.2 k/uL (1.3-7.7); Neutrophils % (A) 57 %; Platelet Count 145 k/uL (150-450); Poikilocytosis Slight; RDW 13.8 % (11.5-15.5); WBC 5.6 k/uL (3.8-10.6)
--- NOTE | 2022-12-31 14:50 | P.PN ---
Subjective Progress Note Date: 12/31/22 Subjective: Patient seen and examined at bedside. No acute events overnight. Pertinent positives and negatives as discussed above, a complete review of systems was performed and all other systems are negative. Vitals Signs Reviewed. General: nontoxic, no distress, appears at stated age Derm: warm, dry, right hip incisional site, with slight erythema, no drainage, dehisced wound Head: atraumatic, normocephalic, symmetric Eyes: EOMI, no lid lag, anicteric sclera Mouth: no lip lesion, mucus membranes moist Cardiovascular: S1S2 reg, no murmur Lungs: CTA bilateral, no rhonchi, no rales , no accessory muscle use Abdominal: soft, nontender to palpation, no guarding, no appreciable organomegaly Ext: no gross muscle atrophy, no edema, no contractures Neuro: CN II-XI grossly intact, no focal neuro deficits Psych: Alert, oriented, appropriate affect Data Reviewed Today: Pertinent Labs: Hemoglobin 10.7, platelet 145, sodium 133, bicarb 20, creatinine 0.45 Imaging: Right hip x-ray shows no acute fracture or dislocation Assessment and Plan: Active: Right hip surgical wound dehiscence, with underlying fluid collection Hypertension Mild thrombocytopenia Mild hyponatremia Non-anion gap metabolic acidosis -Outside CT report consistent with possible resolving hematoma versus seroma -Orthopedic surgery following -On IV vancomycin and IV cefazolin, monitor renal function for renal toxicity -Pain control with oral [place], and IV morphine -Continue losartan and amlodipine -Hold aspirin -Repeat BMP tomorrow Chronic: Chronic normocytic anemia Thank you for allowing us to participate in the care of this pleasant patient. Do not hesitate to contact us with questions. Someone can be reached from the [facility] hospitalist group all hours of the day at [phone] or via [employer] Objective - Vital Signs Vital signs: Vital Signs Temp 97.6 F 12/31/22 07:57 Pulse 80 12/31/22 13:00 Resp 16 12/31/22 13:00 BP 165/78 12/31/22 13:00 Pulse Ox 95 12/31/22 13:00 FiO2 Intake & Output 12/30/22 12/31/22 12/31/22 18:59 06:59 18:59 Weight 90.718 kg - Labs CBC & Chem 7: 12/31/22 12:04 12/31/22 00:46 Labs: Abnormal Lab Results - Last 24 Hours (Table) 12/31/22 12/31/22 Range/Units 00:46 12:04 Hgb 10.7 L (11.4-16.0) gm/dL Hct 33.9 L (34.0-46.0) % Plt Count 145 L (150-450) k/uL Sodium 133 L (137-145) mmol/L Carbon Dioxide 20 L (22-30) mmol/L Creatinine 0.45 L (0.52-1.04) mg/dL
[2022-12-31] MEDS: HYDROcodone/APAP 5-325MG 1 EACH TAB PO PRN ×2 (16:02→22:40)
--- NOTE | 2022-12-31 16:52 | P.HPOR ---
History of Present Illness H&P Date: 12/31/22 This is an 87-year-old female who is status post right total hip arthroplasty on 12/04/2022. Patient was initially discharged to inpatient rehabilitation and was eventually discharged home. Patient states that she noticed increased pain and some dehiscence of her surgical incision on 12/29/2022 and went to [facility] for evaluation. Patient denies any known fever or any significant drainage from the hip. Patient states that she has pain with attempts at walking. A CT scan done at [facility] showed a fluid collection suspicious for abscess and patient was transferred to [facility] for further evaluation. A CBC done [facility] is within limits. Patient's past medical history is significant for hypertension. Patient denies any shortness of breath, numbness, weakness or tingling. Review of Systems See HPI. Past Medical History Past Medical History: Hypertension Additional Past Medical History / Comment(s): LEG SWELLING. LEG SWELLING History of Any Multi-Drug Resistant Organisms: None Reported Past Surgical History: Hysterectomy, Orthopedic Surgery Additional Past Surgical History / Comment(s): L total hip/hardware loosened and had IM cheryl placed. Bilateral feet bunionectomies,. EGD, colonoscopies, bilateral cataract removals Past Anesthesia/Blood Transfusion Reactions: No Reported Reaction Past Psychological History: No Psychological Hx Reported Smoking Status: Former smoker Past Alcohol Use History: None Reported Past Drug Use History: None Reported - Past Family History Father Family Medical History: Osteoarthritis (OA) Additional Family Medical History / Comment(s): Heart problems Mother Family Medical History: Osteoarthritis (OA), Renal Disease Medications and Allergies Home Medications Medication Instructions Recorded Confirmed Type Losartan Potassium 100 mg PO DAILY 10/04/20 12/30/22 History Furosemide [Lasix] 20 mg PO DAILY PRN 06/22/22 12/30/22 History SUMAtriptan succinate [Imitrex] 50 mg PO BID PRN 11/27/22 12/30/22 History amLODIPine [Norvasc] 5 mg PO DAILY 11/27/22 12/30/22 History Acetaminophen [Tylenol 8 Hour] 650 mg PO Q8H PRN 12/30/22 12/30/22 History Aspirin EC [Ecotrin Low Dose] 81 mg PO HS 12/30/22 12/30/22 History Multivitamins, Thera [Multivitamin 1 tab PO DAILY 12/30/22 12/30/22 History (formulary)] Timolol 0.5% Ophth Soln [Timoptic 1 drop BOTH EYES DAILY 12/30/22 12/30/22 History 0.5% Ophth Soln] traMADol HCl [Ultram] 1 tab PO Q6H PRN 12/30/22 12/30/22 History Allergies Allergy/AdvReac Type Severity Reaction Status Date / Time Penicillins Allergy Rash/Hives Verified 12/30/22 21:31 sulfamethoxazole Allergy Unknown Verified 12/30/22 21:31 [From Bactrim] trimethoprim [From Bactrim] Allergy Unknown Verified 12/30/22 21:31 Physical Examination On exam patient is resting comfortably in bed in no acute distress. Patient is alert and oriented 3. Right lower extremity: Incision is intact and there is no active drainage. Minimal erythema. Compartments are soft. Calf is soft and nontender to palpation.Sensation intact. Neurovascular status circulatory status are intact. Exams of the left lower extremity, bilateral upper extremities had and neck are within normal limits. Results X-rays of the right hip are reviewed revealing hardware in good position and alignment. - Labs Labs: Abnormal Lab Results - Last 24 Hours (Table) 12/31/22 12/31/22 Range/Units 00:46 12:04 Hgb 10.7 L (11.4-16.0) gm/dL Hct 33.9 L (34.0-46.0) % Plt Count 145 L (150-450) k/uL Sodium 133 L (137-145) mmol/L Carbon Dioxide 20 L (22-30) mmol/L Creatinine 0.45 L (0.52-1.04) mg/dL H & H 12/31/22 Range/Units 12:04 Hgb 10.7 L (11.4-16.0) gm/dL Hct 33.9 L (34.0-46.0) % Result Diagrams: 12/31/22 12:04 12/31/22 00:46 Assessment and Plan (1) Right hip pain Current Visit: Yes Status: Acute Code(s): M25.551 - PAIN IN RIGHT HIP SNOMED Code(s): 49680615 (2) S/P total right hip arthroplasty Current Visit: No Status: Acute Code(s): Z96.641 - PRESENCE OF RIGHT ARTIFICIAL HIP JOINT SNOMED Code(s): 617882680983 Plan: 1. X-ray is reviewed revealing hardware in good position and alignment. Labs and vital signs continue to be within normal limits. There is a low suspicion for infection. 2. Recommend physical therapy for mobilization. Patient is to be weightbearing as tolerated with a walker. 3. Appreciate input from internal medicine. 4. We will continue to monitor the patient's progress.
[2022-12-31] MEDS: TIMOLOL 0.5% OPHTH DROPS 5 ML BTL BOTH EYES SCH (18:41)
[2023-01-01] MEDS: VANCOMYCIN 1,500 MG in SODIUM CHLORIDE 0.9% 500 ML 500 ML IVPB SCH ×2 (00:14→12:47)
[2023-01-01] MEDS: MELATONIN 5 MG TABLET PO PRN (00:17)
[2023-01-01 05:57] LABS: Basophils % (A) 1 %; Eosinophils # (A) 0.3 k/uL (0-0.7); Eosinophils % (A) 5 %; HCT 31.1 % (34.0-46.0); HGB 9.5 gm/dL (11.4-16.0); Hypochromasia Marked; Lymphocytes # (A) 0.8 k/uL (1.0-4.8); Lymphocytes % (A) 18 %; MCH 27.1 pg (25.0-35.0); MCHC 30.5 g/dL (31.0-37.0); MCV 88.9 fL (80.0-100.0); Mean Platelet Volume 7.3; Monocytes # (A) 0.4 k/uL (0-1.0); Monocytes % (A) 8 %; Neutrophils # (A) 3.1 k/uL (1.3-7.7); Neutrophils % (A) 66 %; Platelet Count 215 k/uL (150-450); RBC 3.49 m/uL (3.80-5.40); RDW 14.2 % (11.5-15.5); WBC 4.7 k/uL (3.8-10.6)
[2023-01-01 06:06] LABS: African American GFR (CKD) >90 (>60 ml/min/1.73 sqM); Anion Gap 6 mmol/L; Blood Urea Nitrogen 9 mg/dL (7-17); Calcium 9.6 mg/dL (8.4-10.2); Carbon Dioxide 24 mmol/L (22-30); Chloride 104 mmol/L (98-107); Glucose 93 mg/dL (74-99); Non-African American GFR(CKD) 84 (>60 ml/min/1.73 sqM); Potassium 4.1 mmol/L (3.5-5.1); Sodium 134 mmol/L (137-145)
[2023-01-01] MEDS ORDERED: LOSARTAN 50 MG TAB PO STA (09:19)
[2023-01-01] MEDS ORDERED: amLODIPine 5 MG TAB PO STA (09:20)
[2023-01-01] MEDS: TIMOLOL 0.5% OPHTH DROPS 5 ML BTL BOTH EYES SCH (09:29)
--- NOTE | 2023-01-01 11:09 | P.PN ---
Subjective Progress Note Date: 01/01/23 This is an 87-year-old female who is status post right total hip arthroplasty on 12/04/2022. Patient is seen and evaluated at bedside today. Patient denies any new complaints today and was able to sit up in a chair. Objective - Vital Signs Vital signs: Vital Signs Temp 97.9 F 01/01/23 07:00 Pulse 82 01/01/23 07:00 Resp 16 01/01/23 07:00 BP 144/70 01/01/23 07:00 Pulse Ox 99 01/01/23 07:00 FiO2 Intake & Output 12/31/22 01/01/23 01/01/23 18:59 06:59 18:59 Intake Total 670 120 Output Total 750 Balance -80 120 Intake: Intake, IV Titration 550 Amount Vancomycin 1,500 mg In 500 Sodium Chloride 0.9% 500 ml 500 ml @ 167 mls/hr IVPB Q12H [facility] Rx#: [id number] ceFAZolin 2 gm In Sodium 50 Chloride 0.9% 50 ml @ 100 mls/hr IVPB ONCE ONE Rx# :[id number] Oral 120 120 Output: Urine 750 Other: Voiding Method External Catheter Toilet Toilet External Catheter # Voids 1 1 - Exam On exam patient is resting comfortably in bed in no acute distress. Patient is alert and oriented 3. Right lower extremity: Incision is intact and there is no active drainage. Minimal erythema. Compartments are soft. Calf is soft and nontender to palpation.Sensation intact. Neurovascular status circulatory status are intact. - Labs CBC & Chem 7: 01/01/23 05:25 01/01/23 05:25 Labs: Abnormal Lab Results - Last 24 Hours (Table) 12/31/22 01/01/23 01/01/23 Range/Units 12:04 05:25 05:25 RBC 3.49 L (3.80-5.40) m/uL Hgb 10.7 L 9.5 L (11.4-16.0) gm/dL Hct 33.9 L 31.1 L (34.0-46.0) % MCHC 30.5 L (31.0-37.0) g/dL Plt Count 145 L (150-450) k/uL Lymphocytes # 0.8 L (1.0-4.8) k/uL Sodium 134 L (137-145) mmol/L Assessment and Plan (1) Right hip pain Current Visit: Yes Status: Acute Code(s): M25.551 - PAIN IN RIGHT HIP SNOMED Code(s): 07240929 (2) S/P total right hip arthroplasty Current Visit: No Status: Acute Code(s): Z96.641 - PRESENCE OF RIGHT ARTIFICIAL HIP JOINT SNOMED Code(s): 761833495194 Plan: 1. X-ray is reviewed revealing hardware in good position and alignment. Labs and vital signs continue to be within normal limits. There is a low suspicion for infection. 2. Recommend physical therapy for mobilization. Patient is to be weightbearing as tolerated with a walker. 3. Appreciate input from internal medicine. Continue IV antibiotics. 4. Anticipate discharge home in the next 24-48 hours.
--- NOTE | 2023-01-01 11:26 | P.PN ---
Subjective Progress Note Date: 01/01/23 Subjective: Patient seen and examined at bedside. No acute events overnight. Pertinent positives and negatives as discussed above, a complete review of systems was performed and all other systems are negative. Vitals Signs Reviewed. General: nontoxic, no distress, appears at stated age Derm: warm, dry, right hip incisional site, with slight erythema, no drainage, dehisced wound Head: atraumatic, normocephalic, symmetric Eyes: EOMI, no lid lag, anicteric sclera Mouth: no lip lesion, mucus membranes moist Cardiovascular: S1S2 reg, no murmur Lungs: CTA bilateral, no rhonchi, no rales , no accessory muscle use Abdominal: soft, nontender to palpation, no guarding, no appreciable orga nomegaly Ext: no gross muscle atrophy, no edema, no contractures Neuro: CN II-XI grossly intact, no focal neuro deficits Psych: Alert, oriented, appropriate affect Data Reviewed Today: Pertinent Labs: Hemoglobin 9.5, sodium 134, creatinine 0.55 Imaging: No new imaging Assessment and Plan: Active: Right hip surgical wound dehiscence, with underlying fluid collection Hypertension Mild thrombocytopenia, resolved Mild hyponatremia Non-anion gap metabolic acidosis -Orthopedic surgery note reviewed, no interventions, continue IV antibiotics, possible discharge in 1-2 days -On IV vancomycin and IV cefazolin, monitor renal function for renal toxicity -Pain control with oral [place], and IV morphine -Continue losartan and amlodipine -Hold aspirin -Repeat BMP tomorrow Chronic: Chronic normocytic anemia Thank you for allowing us to participate in the care of this pleasant patient. Do not hesitate to contact us with questions. Someone can be reached from the [facility] hospitalist group all hours of the day at [phone] or via [employer] Objective - Vital Signs Vital signs: Vital Signs Temp 97.9 F 01/01/23 07:00 Pulse 82 01/01/23 07:00 Resp 16 01/01/23 07:00 BP 144/70 01/01/23 07:00 Pulse Ox 99 01/01/23 07:00 FiO2 Intake & Output 12/31/22 01/01/23 01/01/23 18:59 06:59 18:59 Intake Total 670 120 Output Total 750 Balance -80 120 Intake: Intake, IV Titration 550 Amount Vancomycin 1,500 mg In 500 Sodium Chloride 0.9% 500 ml 500 ml @ 167 mls/hr IVPB Q12H [facility] Rx#: [id number] ceFAZolin 2 gm In Sodium 50 Chloride 0.9% 50 ml @ 100 mls/hr IVPB ONCE ONE Rx# :[id number] Oral 120 120 Output: Urine 750 Other: Voiding Method External Catheter Toilet Toilet External Catheter # Voids 1 1 - Labs CBC & Chem 7: 01/01/23 05:25 01/01/23 05:25 Labs: Abnormal Lab Results - Last 24 Hours (Table) 12/31/22 01/01/23 01/01/23 Range/Units 12:04 05:25 05:25 RBC 3.49 L (3.80-5.40) m/uL Hgb 10.7 L 9.5 L (11.4-16.0) gm/dL Hct 33.9 L 31.1 L (34.0-46.0) % MCHC 30.5 L (31.0-37.0) g/dL Plt Count 145 L (150-450) k/uL Lymphocytes # 0.8 L (1.0-4.8) k/uL Sodium 134 L (137-145) mmol/L
[2023-01-01 20:53] VITALS: RESP 16
[2023-01-02] MEDS: MELATONIN 5 MG TABLET PO PRN (02:29)
[2023-01-02 05:03] LABS: African American GFR (CKD) >90 (>60 ml/min/1.73 sqM); Non-African American GFR(CKD) 85 (>60 ml/min/1.73 sqM)
[2023-01-02] MEDS ORDERED: VANCOMYCIN 1,500 MG in SODIUM CHLORIDE 0.9% 500 ML 500 ML IVPB SCH (06:00)
[2023-01-02 09:26] VITALS: BP 146/66; PULSE 79; TEMP 98.1
[2023-01-02] MEDS: TIMOLOL 0.5% OPHTH DROPS 5 ML BTL BOTH EYES SCH (09:55)
[2023-01-02] MEDS: amLODIPine 5 MG TAB PO SCH (09:55)
[2023-01-02] MEDS: LOSARTAN 50 MG TAB PO SCH (09:56)
--- NOTE | 2023-01-02 10:08 | P.DS ---
Providers Date of admission: 12/30/22 21:39 Expected date of discharge: 01/02/23 Attending physician: Mindi Abbott Consults: 12/30/22 21:38 Consult Physician Routine Consulting Provider: Beata Pascual Consult Reason/Comments: medical management Do you want consulting provider notified?: Already Contacted Primary care physician: Bar Chavis MD - Discharge Diagnosis(es) (1) Right hip pain Current Visit: Yes Status: Acute (2) S/P total right hip arthroplasty Current Visit: No Status: Acute Hospital Course: This is an 87-year-old female who underwent right total hip arthroplasty with direct anterior approach on 12/04/[address] Wallace Dunn. Patient states that she developed pain in the right hip and some drainage from her surgical incision on 12/29/2022. Patient was evaluated at [facility] and transferred to [facility] for further management. Patient was admitted to [facility] on 12/30/2022. During this admission the patient has remained afebrile and white blood cell count has been within normal limits. Patient's pain has improved and she has been able to walk with a walker and work with physical therapy. A CT from [place] was reviewed. An X-ray of the right hip was performed and reviewed showing the total hip arthroplasty in good position and alignment. Patient has received antibiotics while admitted and will be discharged with a prescription for Keflex as a precaution while her incision continues to heal. On day of discharge patient's hip incision is healing with a small area of dehiscence. There is no surrounding erythema. No significant drainage. Patient has no pain with range of motion of the right hip. There is minimal soft tissue swelling to the hip and thigh. Patient has full foot and ankle motion without difficulty or pain. Calf is soft and nontender to palpation. Neurovascular status to the right lower extremity is intact. Patient is discharged home in good condition. Please see med rec for accurate list of home medications. Patient Condition at Discharge: Stable Plan - Discharge Summary New Discharge Prescriptions: New Cephalexin [Keflex] 500 mg PO Q6HR 10 Days #10 cap No Action Losartan Potassium 100 mg PO DAILY Furosemide [Lasix] 20 mg PO DAILY PRN PRN Reason: LEG SWELLING SUMAtriptan succinate [Imitrex] 50 mg PO BID PRN PRN Reason: Migraine Headache traMADol HCl [Ultram] 1 tab PO Q6H PRN PRN Reason: Pain Aspirin EC [Ecotrin Low Dose] 81 mg PO HS amLODIPine [Norvasc] 5 mg PO DAILY Multivitamins, Thera [Multivitamin (formulary)] 1 tab PO DAILY Acetaminophen [Tylenol 8 Hour] 650 mg PO Q8H PRN PRN Reason: Pain Timolol 0.5% Ophth Soln [Timoptic 0.5% Ophth Soln] 1 drop BOTH EYES DAILY Discharge Medication List Losartan Potassium 100 mg PO DAILY 10/04/20 [History] Furosemide [Lasix] 20 mg PO DAILY PRN 06/22/22 [History] SUMAtriptan succinate [Imitrex] 50 mg PO BID PRN 11/27/22 [History] amLODIPine [Norvasc] 5 mg PO DAILY 11/27/22 [History] Acetaminophen [Tylenol 8 Hour] 650 mg PO Q8H PRN 12/30/22 [History] Aspirin EC [Ecotrin Low Dose] 81 mg PO HS 12/30/22 [History] Multivitamins, Thera [Multivitamin (formulary)] 1 tab PO DAILY 12/30/22 [History] Timolol 0.5% Ophth Soln [Timoptic 0.5% Ophth Soln] 1 drop BOTH EYES DAILY 12/30/22 [History] traMADol HCl [Ultram] 1 tab PO Q6H PRN 12/30/22 [History] Cephalexin [Keflex] 500 mg PO Q6HR 10 Days #10 cap 01/02/23 [Rx] Follow up Appointment(s)/Referral(s): None,Stated [REFERRING] - 1-2 days Wallace Dunn DO [Doctor of Osteopathic Medicine] - 1 Week Activity/Diet/Wound Care/Special Instructions: May leave incision open to air when at home. Please take Keflex as prescribed. Please follow-up with [facility] in one week and call with any questions or concerns, . Discharge Disposition: HOME SELF-CARE
--- NOTE | 2023-01-02 11:36 | P.PN ---
Subjective Progress Note Date: 01/02/23 Subjective: Patient seen and examined at bedside. No acute events overnight. Pertinent positives and negatives as discussed above, a complete review of systems was performed and all other systems are negative. Vitals Signs Reviewed. General: nontoxic, no distress, appears at stated age Derm: warm, dry, right hip incisional site, with slight erythema, no drainage, dehisced wound Head: atraumatic, normocephalic, symmetric Eyes: EOMI, no lid lag, anicteric sclera Mouth: no lip lesion, mucus membranes moist Cardiovascular: S1S2 reg, no murmur Lungs: CTA bilateral, no rhonchi, no rales , no accessory muscle use Abdominal: soft, nontender to palpation, no guarding, no appreciable organomegaly Ext: no gross muscle atrophy, no edema, no contractures Neuro: CN II-XI grossly intact, no focal neuro deficits Psych: Alert, oriented, appropriate affect Data Reviewed Today: Pertinent Labs: Creatinine 0.52 Imaging: No new imaging Assessment and Plan: Active: Right hip surgical wound dehiscence, with underlying fluid collection Hypertension Mild thrombocytopenia, resolved Mild hyponatremia Non-anion gap metabolic acidosis -Patient being discharged by orthopedic surgery on short course of oral antibiotics -Discharge medications have been reconciled Chronic: Chronic normocytic anemia Patient is medically optimized for discharge Thank you for allowing us to participate in the care of this pleasant patient. Do not hesitate to contact us with questions. Someone can be reached from the [facility] hospitalist group all hours of the day at [phone] or via perfect serve Objective - Vital Signs Vital signs: Vital Signs Temp 98.1 F 01/02/23 07:00 Pulse 79 01/02/23 07:00 Resp 16 01/02/23 07:00 BP 146/66 01/02/23 07:00 Pulse Ox 96 01/02/23 07:00 FiO2 Intake & Output 01/01/23 01/02/23 01/02/23 18:59 06:59 18:59 Intake Total 480 118 Balance 480 118 Intake: Oral 480 118 Other: Voiding Method Toilet Toilet # Voids 1 2 - Labs CBC & Chem 7: 01/01/23 05:25 01/02/23 03:32 Labs: Microbiology - Last 24 Hours (Table) 12/30/22 21:00 Blood Culture - Preliminary Blood 12/30/22 21:15 Blood Culture - Preliminary Blood
[2023-01-02] MEDS ORDERED: VANCOMYCIN TROUGH DUE 1 EACH MISC MISCELLANE ONE (17:00)
== END 2023-01-02 15:25 | disposition home health service (06) ==
LOC: EC 20:18 → 6NMEDSUR 21:39
PROVIDERS: ADMIT Orthopaedic Surgery Orthopaedic Surgery of the Spine; ATTEND Orthopaedic Surgery Orthopaedic Surgery of the Spine
DX: T81.31XA Disruption of external operation (surgical) wound, not elsewhere classified, initial encounter (principal); M25.551 Pain in right hip; I10 Essential (primary) hypertension; D69.6 Thrombocytopenia, unspecified; E87.1 Hypo-osmolality and hyponatremia; E87.20 Acidosis, unspecified; D64.9 Anemia, unspecified; Z96.641 Presence of right artificial hip joint; Z87.891 Personal history of nicotine dependence; Z79.899 Other long term (current) drug therapy; Z79.82 Long term (current) use of aspirin; Z88.0 Allergy status to penicillin; Z88.2 Allergy status to sulfonamides; Y79.2 Prosthetic and other implants, materials and accessory orthopedic devices associated with adverse incidents; Y83.8 Other surgical procedures as the cause of abnormal reaction of the patient, or of later complication, without mention of misadventure at the time of the procedure
CPT/HCPCS: 96366 ×4; 96376; 96365; 96367; 96375; 99285; 97162; 80048 ×2; 82565; 85025 ×2; 87040; 73502; 93971; G0378 ×4; J3370 ×4; J2270; J0690 ×3

== ENCOUNTER 2023-03-10 18:41 | Emergency (ER) | payer MEDICARE, BC ==
[2023-03-10] MEDS ORDERED: MORPHINE SULFATE 4 MG/ML SYRINGE IV STA (19:13)
--- NOTE | 2023-03-10 19:18 | ED ---
General Adult HPI - General Chief complaint: Extremity Injury, Lower Stated complaint: Right leg pain Time Seen by Provider: 03/10/23 18:58 Source: patient Mode of arrival: wheelchair Limitations: no limitations - History of Present Illness Initial comments: Dictation was produced using [employer] dictation software. please excuse any grammatical, word or spelling errors. Chief Complaint: 87-year-old female presents to the ER for right lower extremity pain History of Present Illness: She is 87-year-old female back in November she had r ight total hip replacement. States that ever since then she's been having issues with right lower extremity. 2 months ago she was admitted to the hospital for concerns of possible postoperative infection. States that her wound stays open however looks better. She complains of acute or chronic pain to the right lower extremity. States that she has pain behind her legs she does suffer from chronic lymphedema affects both legs. She went to [place] today where they told her to come straight here. He did not make an attempt to run any tests. Last week she was at [place] with the did an ultrasound and blood work she so she had low hemoglobin but she did have a normal ultrasound w ithout any DVT. The ROS documented in this emergency department record has been reviewed and confirmed by me. Those systems with pertinent positive or negative responses have been documented in the HPI. All other systems are other negative and/or noncontributory. - Related Data Home Medications Medication Instructions Recorded Confirmed Losartan Potassium 100 mg PO DAILY 10/04/20 12/30/22 SUMAtriptan succinate [Imitrex] 50 mg PO BID PRN 11/27/22 12/30/22 amLODIPine [Norvasc] 5 mg PO DAILY 11/27/22 12/30/22 Acetaminophen [Tylenol 8 Hour] 650 mg PO Q8H PRN 12/30/22 12/30/22 Aspirin EC [Ecotrin Low Dose] 81 mg PO HS 12/30/22 12/30/22 Multivitamins, Thera [Multivitamin 1 tab PO DAILY 12/30/22 12/30/22 (formulary)] Timolol 0.5% Ophth Soln [Timoptic 1 drop BOTH EYES DAILY 12/30/22 12/30/22 0.5% Ophth Soln] Previous Rx's Medication Instructions Recorded Cephalexin [Keflex] 500 mg PO Q6HR 10 Days #10 cap 01/02/23 Melatonin 5 mg PO HS PRN tab 01/02/23 traMADol HCl [Ultram] 50 mg PO Q6HR PRN 3 Days #12 tab 03/10/23 Allergies Allergy/AdvReac Type Severity Reaction Status Date / Time allopurinol Allergy Rash/Hives Verified 03/10/23 18:56 Penicillins Allergy Rash/Hives Verified 03/10/23 18:56 sulfamethoxazole Allergy Unknown Verified 03/10/23 18:56 [From Bactrim] trimethoprim [From Bactrim] Allergy Unknown Verified 03/10/23 18:56 Review of Systems ROS Statement: Those systems with pertinent positive or pertinent negative responses have been documented in the HPI. ROS Other: All systems not noted in ROS Statement are negative. Past Medical History Past Medical History: Hypertension Additional Past Medical History / Comment(s): LEG SWELLING. LEG SWELLING History of Any Multi-Drug Resistant Organisms: None Reported Past Surgical History: Hysterectomy, Orthopedic Surgery Additional Past Surgical History / Comment(s): L total hip/hardware loosened and had IM cheryl placed. Bilateral feet bunionectomies,. EGD, colonoscopies, bilateral cataract removals Past Anesthesia/Blood Transfusion Reactions: No Reported Reaction Past Psychological History: No Psychological Hx Reported Smoking Status: Former smoker Past Alcohol Use History: None Reported Past Drug Use History: None Reported - Past Family History Father Family Medical History: Osteoarthritis (OA) Additional Family Medical History / Comment(s): Heart problems Mother Family Medical History: Osteoarthritis (OA), Renal Disease General Exam - General Exam Comments Initial Comments: PHYSICAL EXAM: General Impression: Alert and oriented x3, not in acute distress HEENT: Normocephalic atraumatic, extra-ocular movements intact, pupils equal and reactive to light bilaterally, mucous membranes moist. Cardiovascular: Heart regular rate and rhythm Chest: Able to complete full sentences, no retractions, no tachypnea Abdomen: abdomen soft, non-tender, non-distended, no organomegaly Musculoskeletal: Pulses present and equal in all extremities, nonpitting edema to the bilateral lower extremities Motor: no focal deficits noted Neurological: CN II-XII grossly intact, no focal motor or sensory deficits noted Skin: Intact with no visualized rashes Psych: Normal affect and mood Limitations: no limitations Course Vital Signs 03/10/23 03/10/23 03/10/23 18:50 19:45 21:08 Temperature 97.2 F L Pulse Rate 73 73 68 Respiratory 18 18 18 Rate Blood Pressure 152/69 142/62 126/55 O2 Sat by Pulse 100 99 Oximetry Medical Decision Making - Medical Decision Making Was pt. sent in by a medical professional or institution (TORI Flores, [employer]C PAD KNOCKOUT WORKER, urgent care, hospital, or half-way...) When possible be specific @ -No Did you speak to anyone other than the patient for history (EMS, parent, family, police, friend...)? What history was obtained from this source @ -No Did you review nursing and triage notes (agree or disagree)? Why? @ -I reviewed and agree with nursing and triage notes Were old charts reviewed (outside hosp., previous admission, EMS record, old EK G, old radiological studies, urgent care reports/EKG's, half-way records)? Report findings @ -No old charts were reviewed Differential Diagnosis (chest pain, altered mental status, abdominal pain women, abdominal pain men, vaginal bleeding, musculoskeletal, weakness, fever, dyspnea, syncope, headache, dizziness, GI bleed, back pain, seizure, CVA, palpatations, mental health)? @ -not applicable EKG interpreted by me (3pts min.). @ -None done X-rays interpreted by me (1pt min.). @ -None done CT interpreted by me (1pt min.). @ -None done U/S interpreted by me (1pt. min.). @ - What testing was considered but not performed or refused? (CT, X-rays, U/S, labs)? Why? @ -None What meds were considered but not given or refused? Why? @ -None Did you discuss the management of the patient with other professionals (professionals i.e. TORI Flores, [employer]C P[employer] KNOCKOUT WORKER, lab, RT, psych nurse, director social service, media marketing specialist, teacher, campus security officer, case repairer)? Give summary @ -No Was smoking cessation discussed for >3mins.? @ -No Was critical care preformed (if so, how long)? @ -No Were there social determinants of health that impacted care today? How? (Homelessness, low income, unemployed, alcoholism, drug addiction, transportation, low edu. Level, literacy, decrease access to med. care, senior care, rehab)? @ -No Was there de-escalation of care discussed even if they declined (Discuss DNR or withdrawal of care, Hospice)? DNR status @ -No What co-morbidities impacted this encounter? (DM, HTN, Smoking, COPD, CAD, Cancer, CVA, ARF, Chemo, Hep., AIDS, mental health diagnosis, sleep apnea, morbid obesity)? @ -None Was patient admitted / discharged? Hospital course, mention meds given and r oute, prescriptions, significant lab abnormalities, going to OR and other pertinent info. @ -87-year-old female presents emergency department for leg pain. Vital signs upon arrival except limits. Physical examination suggest lymphedema. labs within acceptable limits. Ultrasound is unremarkable. Patient is feeling improved after analgesics. She'll be discharge advised follow-up with primary care doctor. Undiagnosed new problem with uncertain prognosis? @ -No Drug Therapy requiring intensive monitoring for toxicity (Heparin, Nitro, Insulin, Cardizem)? @ -No Were any procedures done? @ -No Diagnosis/symptom? Acute, or Chronic, or Acute on Chronic? Uncomplicated (without systemic symptoms) or Complicated (systemic symptoms)? @ -Leg pain secondary to lymphedema Side effects of treatment? @ -No Exacerbation, Progression, or Severe Exacerbation? @ -No Poses a threat to life or bodily function? How? (Chest pain, [place], [place], pneumonia, PE, COPD, DKA, ARF, appy, cholecystitis, CVA, Diverticulitis, Homicidal, Suicidal, threat to staff... and all critical care pts) @ -yes - Lab Data Result diagrams: 03/10/23 19:30 03/10/23 19:30 Lab Results 03/10/23 03/10/23 03/10/23 Range/Units 19:30 19:30 19:30 WBC 6.3 (3.8-10.6) k/uL RBC 4.06 (3.80-5.40) m/uL Hgb 10.2 L (11.4-16.0) gm/dL Hct 32.9 L (34.0-46.0) % MCV 81.2 (80.0-100.0) fL MCH 25.1 (25.0-35.0) pg MCHC 30.9 L (31.0-37.0) g/dL RDW 19.9 H (11.5-15.5) % Plt Count 292 (150-450) k/uL MPV 8.1 Neutrophils % 66 % Lymphocytes % 19 % Monocytes % 8 % Eosinophils % 3 % Basophils % 1 % Neutrophils # 4.2 (1.3-7.7) k/uL Lymphocytes # 1.2 (1.0-4.8) k/uL Monocytes # 0.5 (0-1.0) k/uL Eosinophils # 0.2 (0-0.7) k/uL Basophils # 0.0 (0-0.2) k/uL Hypochromasia Marked Poikilocytosis Slight Anisocytosis Slight Microcytosis Slight PT 10.3 (10.0-12.5) sec INR 0.9 (<1.2) APTT 22.7 (22.0-30.0) sec Sodium 130 L (137-145) mmol/L Potassium 4.4 (3.5-5.1) mmol/L Chloride 98 (98-107) mmol/L Carbon Dioxide 23 (22-30) mmol/L Anion Gap 9 mmol/L BUN 17 (7-17) mg/dL Creatinine 0.50 L (0.52-1.04) mg/dL Est GFR (CKD-EPI)AfAm >90 (>60 ml/min/1.73 sqM) Est GFR (CKD-EPI)NonAf 86 (>60 ml/min/1.73 sqM) Glucose 88 (74-99) mg/dL Calcium 10.4 H (8.4-10.2) mg/dL Disposition Clinical Impression: Leg pain Disposition: HOME SELF-CARE Condition: Good Instructions (If sedation given, give patient instructions): Lymphedema (ED) Prescriptions: traMADol HCl [Ultram] 50 mg PO Q6HR PRN 3 Days #12 tab PRN Reason: Pain Is patient prescribed a controlled substance at d/c from ED?: Yes If prescribed controlled substance>3 days was MAPS reviewed?: Prescribed <3 Days Referrals: Dale Mohamud MD [STAFF PHYSICIAN] - 1-2 days Time of Disposition: 21:04
[2023-03-10 19:36] VITALS: RESP 18; TEMP 97.2
[2023-03-10 20:13] LABS: Anisocytosis Slight; Basophils % (A) 1 %; Eosinophils # (A) 0.2 k/uL (0-0.7); Eosinophils % (A) 3 %; HCT 32.9 % (34.0-46.0); HGB 10.2 gm/dL (11.4-16.0); Hypochromasia Marked; Lymphocytes # (A) 1.2 k/uL (1.0-4.8); Lymphocytes % (A) 19 %; MCH 25.1 pg (25.0-35.0); MCHC 30.9 g/dL (31.0-37.0); MCV 81.2 fL (80.0-100.0); Mean Platelet Volume 8.1; Microcytosis Slight; Monocytes # (A) 0.5 k/uL (0-1.0); Monocytes % (A) 8 %; Neutrophils # (A) 4.2 k/uL (1.3-7.7); Neutrophils % (A) 66 %; Platelet Count 292 k/uL (150-450); Poikilocytosis Slight; RBC 4.06 m/uL (3.80-5.40); RDW 19.9 % (11.5-15.5); WBC 6.3 k/uL (3.8-10.6)
[2023-03-10 20:25] LABS: INR 0.9 (<1.2); Partial Thromboplastin Time 22.7 sec (22.0-30.0); Prothrombin Time 10.3 sec (10.0-12.5)
--- NOTE | 2023-03-10 21:02 | US ---
EXAMINATION TYPE: US venous doppler duplex LE RT DATE OF EXAM: 03/10/2023 8:26 PM COMPARISON: CLINICAL INDICATION: Female, 87 years old with history of suspect DVT; Hx right hip surgery Nov 2022. Blood transfusion x 1 week ago. On aspirin. Swelling and redness. SIDE PERFORMED: Right TECHNIQUE: The lower extremity deep venous system is examined utilizing real time linear array sonog alex with graded compression, doppler sonography and color-flow sonography. VESSELS IMAGED: Common Femoral Vein Deep Femoral Vein Greater Saphenous Vein * Femoral Vein Popliteal Vein Small Saphenous Vein * Proximal Calf Veins (* superficial vessels) Right Leg: Negative for DVT. Poor visualization of the posterior tibial vein. IMPRESSION: No evidence of DVT in the right lower extremity
[2023-03-10] MEDS ORDERED: traMADol 50 MG STARTER PACK 3 TAB BTL PO STA (21:10)
[2023-03-10 21:15] LABS: African American GFR (CKD) >90 (>60 ml/min/1.73 sqM); Anion Gap 9 mmol/L; Blood Urea Nitrogen 17 mg/dL (7-17); Calcium 10.4 mg/dL (8.4-10.2); Carbon Dioxide 23 mmol/L (22-30); Chloride 98 mmol/L (98-107); Glucose 88 mg/dL (74-99); Non-African American GFR(CKD) 86 (>60 ml/min/1.73 sqM); Potassium 4.4 mmol/L (3.5-5.1); Sodium 130 mmol/L (137-145)
[2023-03-10 21:21] VITALS: BP 126/55; PULSE 68
== END 2023-03-10 21:23 | disposition home or self-care (01) ==
LOC: EC 18:41
DX: M79.604 Pain in right leg (principal); I10 Essential (primary) hypertension; Z87.891 Personal history of nicotine dependence; Z79.82 Long term (current) use of aspirin; Z79.899 Other long term (current) drug therapy; Z88.0 Allergy status to penicillin; Z88.2 Allergy status to sulfonamides; Z88.1 Allergy status to other antibiotic agents; Z88.8 Allergy status to other drugs, medicaments and biological substances
CPT/HCPCS: 36415; 93005; 86900; 86901; 80048; 85025; 85610; 85730; 86850; 93971; 99284; 96374; J2270